=== PATIENT | female | born 1965 | race Caucasian/White ===

== ENCOUNTER 2019-05-02 09:49 | Outpatient (RCR) | payer BC, SELFPAY | END 2019-05-03 23:59 | disposition home or self-care (01) | LOC: SPT 09:49 | PROVIDERS: Family Provider Family Medicine; Referring Provider Neurological Surgery; Visit Provider Neurological Surgery | DX: M54.2 Cervicalgia (principal); M54.5 Low back pain | CPT/HCPCS: 97161 ==

== ENCOUNTER 2019-05-06 06:00 | Outpatient (RCR) | payer BC, SELFPAY | END 2019-06-01 23:59 | disposition home or self-care (01) | LOC: SPT 06:00 | PROVIDERS: Family Provider Family Medicine; Referring Provider Neurological Surgery; Visit Provider Neurological Surgery | DX: M54.2 Cervicalgia (principal); M54.5 Low back pain | CPT/HCPCS: 97110; 97140 ==

== ENCOUNTER 2019-06-02 06:00 | Outpatient (RCR) | payer BC, SELFPAY | END 2019-07-02 23:59 | disposition home or self-care (01) | LOC: SPT 06:00 | PROVIDERS: Family Provider Family Medicine; Referring Provider Neurological Surgery; Visit Provider Neurological Surgery | DX: M54.2 Cervicalgia (principal); M54.5 Low back pain | CPT/HCPCS: 97110 ==

== ENCOUNTER 2020-12-12 21:36 | Emergency (ER) | payer BC, SELFPAY ==
[2020-12-12 21:57] VITALS: BP 131/85; PULSE 96; RESP 16; TEMP 36.9; O2SAT 95; BMI 31.3
[2020-12-12 22:53] VITALS: BP 134/74; PULSE 86; RESP 18; O2SAT 97
--- NOTE | 2020-12-12 23:17 | ED_ITS ---
HPI - General Adult General: Chief complaint: General Medical Stated complaint: Low Back Pain/Painful urination Time Seen by Provider: 12/12/20 22:46 History of Present Illness: HPI narrative: Patient has been treating UTI at home for several days with homeopathic approach. Typically avoids use of antibiotics through use of essential oils and only homeopathic medication. Today pain became worse diffusely across lower back, urination became more painful bladder spasms more frequent. MD complaint: Dysuria, frequency. Onset (ago): day(s) Severity: moderate Severity scale (1-10): 5 Quality: burning and sharp Pain Consistency: constant Relieving factors: none Exacerbating factors: none Review of Systems General: Reports: 10 or more systems reviewed and unremarkable except in HPI and below : Reports: dysuria and urinary frequency Musc: Reports: back pain (bilateral lower back) Physical Exam Const: COMMON NORMALS: no acute distress, average body habitus, patient oriented x3, no limitations, healthy appearing, alert and well nourished HENMT: COMMON NORMALS: normocephalic, atraumatic and hearing grossly normal bilaterally HEAD & SCALP: normocephalic and atraumatic Eye: COMMON NORMALS: Equal, round and reactive pupils present, EOMs intact bilaterally and conjunctivae normal CONJUNCTIVA: Yes conjunctivae normal PUPIL: Yes Equal, round and reactive pupils present Neck/C-Spine: COMMON NORMALS: full ROM, no lymphadenopathy and no JVD Resp: COMMON NORMALS: normal respiratory effort, No retractions, No use of accessory muscles, clear to auscultation bilaterally and percussion normal AUSCULTATION: clear to auscultation bilaterally PERCUSSION: percussion normal Cardio: COMMON NORMALS: no JVD, regular rate, regular rhythm, S1 normal heart sound present, S2 normal heart sound present, No gallops present (Cardio), No clicks present (Cardio), No murmurs present (Cardio) and No rub (Cardio) RATE: regular rate RHYTHM: regular rhythm HEART SOUNDS: S1 normal heart sound present and S2 normal heart sound present GI: COMMON NORMALS: Normal to inspection, nondistended, normoactive bowel sounds present, Soft to palpation, non-tender, No hepatosplenomegaly present, no masses and no bruits PALPATION: Yes Soft to palpation and Yes No hepatosplenomegaly present : COMMON NORMALS: Yes no CVA tenderness BLADDER/KIDNEY EXAM: Yes no CVA tenderness Back/Pelvis: COMMON NORMALS: no CVA tenderness OTHER: Diffuse lower back pain, worse with urination. Neuro: COMMON NORMALS: patient oriented x3 SENSORIUM/ORIENTATION: Yes alert Skin: COMMON NORMALS: no rashes or lesions noted, no wounds, turgor normal, no jaundice, no petechiae and no mottling GENERAL SKIN EXAM: no rashes or lesions noted and turgor normal Course Vital Signs: Vital signs: Vital Signs Temperature 98.5 F 12/12/20 21:57 Pulse Rate 94 12/13/20 00:21 Respiratory Rate 18 12/13/20 00:21 Blood Pressure 99/72 12/13/20 00:21 Pulse Oximetry 97 12/13/20 00:21 [facility] - General Adult Lab Data: Attestation: I reviewed the patient's lab results. Labs: Lab Results 12/12/20 12/12/20 12/12/20 Range/Units 23:10 23:10 23:10 WBC 13.6 H (4.0-10.0) 10^3/ uL RBC 4.95 (4.1-5.3) 10^6/u L Hgb 13.2 (11.5-15.3) g/dL Hct 43.2 (37.0-47.0) % MCV 87.3 (81-99) fl MCH 26.7 L (28.0-34.0) pg MCHC 30.6 (30.0-36.0) g/dL RDW 15.7 H (12.1-15.1) % Plt Count 223 (130-400) 10^3/c mm MPV 12.6 H (7.4-10.4) fL Neut % (Auto) 64.7 % Lymph % (Auto) 27.3 % [place] % (Auto) 6.3 % Eos % (Auto) 1.0 % Baso % (Auto) 0.4 % Neut # (Auto) 8.81 H (1.8-7.7) 10^3/u L Lymph # (Auto) 3.7 (0.8-4.8) 10^3/u L [place] # (Auto) 0.9 (0.2-0.9) 10^3/u L Eos # (Auto) 0.1 (0.0-0.8) 10^3/u L Baso # (Auto) 0.1 (0.0-0.1) 10^3/u L Nucleated RBC % (a uto) 0 % Nucleated RBCs # 0.0 /100WBC Sodium 144 (136-145) mmol/L Potassium 3.8 (3.5-5.1) mmol/L Chloride 106 (98-107) mmol/L Carbon Dioxide 28 (22-29) mmol/L Anion Gap 13.8 (5-19) BUN 17 (6-20) mg/dL Creatinine 0.6 (0.5-0.9) mg/dL GFR Calculation 104.2 (90-130) mL/min Glucose 94 (65-115) mg/dL Calculated Osmolal ity 299 H (285-295) mOsm/k g Calcium 9.0 (8.5-10.5) mg/dL Total Bilirubin 0.2 (0.15-1.2) mg/dL AST 13 (0-32) U/L ALT 15 (0-33) U/L Alkaline Phosphata se 114 H (35-105) IU/L Total Protein 7.3 (6.6-8.7) g/dL Albumin 4.0 (3.5-5.2) g/dL Globulin 3.3 (1.3-4.6) g/dL Urine Color Yellow (Yellow) Urine Appearance Sl hazy (CLEAR) Urine pH 9 H (5-7) Ur Specific Gravit y 1.010 (1.005-1.030) Urine Protein Neg (Negative) Urine Glucose (UA) Norm (Normal) Urine Ketones Negative (Negative) Urine Blood 2+ H (Negative) Urine Nitrate Negative (Negative) Urine Bilirubin Neg (Negative) Prot Sulfosalicyli c Acd Negative (Negative) Urine Urobilinogen Norm (Negative) mg/dL Ur Leukocyte [place]ola ase 1+ H (Negative) Urine RBC 25-40 H (0-2) /hpf Urine WBC 40-55 H (0-5) /hpf Ur Squamous Epith Cells 5-10 H (0-5) /hpf Amorphous Sediment Not Reportable Urine Bacteria 2+ H (NONE) /hpf Discharge Plan Discharge Patient Disposition: Home Clinical Impression: Acute cystitis Condition: Stable Prescriptions: New Celebrex 200 mg capsule 200 mg PO BID PRN (Reason: pain) Qty: 14 RF: 0 levofloxacin 750 mg tablet 750 mg PO DAILY 7 Days RF: 0 Discharge Orders: Discharge ED (Routine); Ordered 12/13/20 Ordered By: Marta Sanchez Referrals: Juju Treviño MD [Primary Care Provider] - 4-7 days Discharge Diet: Usual diet Discharge Activity: Resume usual activity Patient Instructions: Urinary Tract Infection in Women (ED) Activity Restrictions/Additional Instructions: Return for urgent evaluation should condition deteriorate, pain become worse, or development of fevers, nausea/vomiting/diarrhea. Coding Level of Care Code ED Tree Scout for Chg Fwd Exam Comprehensive
[2020-12-12 23:42] LABS: Basophils # 0.1 10^3/uL (0.0-0.1); Basophils % 0.4 %; Eosinophils # 0.1 10^3/uL (0.0-0.8); Hematocrit 43.2 % (37.0-47.0); Hemoglobin 13.2 g/dL (11.5-15.3); Lymphocytes # 3.7 10^3/uL (0.8-4.8); Lymphocytes % 27.3 %; Mean Corpuscular HGB Conc 30.6 g/dL (30.0-36.0); Mean Corpuscular Hemoglobin 26.7 pg (28.0-34.0); Mean Corpuscular Volume 87.3 fl (81-99); Mean Platelet Volume 12.6 fL (7.4-10.4); Monocytes # 0.9 10^3/uL (0.2-0.9); Monocytes % 6.3 %; Neutrophils # 8.81 10^3/uL (1.8-7.7); Neutrophils % 64.7 %; Nucleated Red Blood Cells % 0 %; Platelet Count 223 10^3/cmm (130-400); Red Blood Count 4.95 10^6/uL (4.1-5.3); Red Cell Distribution Width 15.7 % (12.1-15.1); White Blood Count 13.6 10^3/uL (4.0-10.0)
[2020-12-12 23:52] LABS: Alanine Aminotransferase 15 U/L (0-33); Alkaline Phosphatase 114 IU/L (35-105); Anion Gap 13.8 (5-19); Aspartate Amino Transferase 13 U/L (0-32); Blood Urea Nitrogen 17 mg/dL (6-20); Carbon Dioxide 28 mmol/L (22-29); Chloride 106 mmol/L (98-107); Globulin 3.3 g/dL (1.3-4.6); Glomerular Filtration Rate 104.2 mL/min (90-130); Glucose 94 mg/dL (65-115); Osmolality Calculated 299 mOsm/kg (285-295); Potassium 3.8 mmol/L (3.5-5.1); Sodium 144 mmol/L (136-145); Total Bilirubin 0.2 mg/dL (0.15-1.2); Total Protein 7.3 g/dL (6.6-8.7)
[2020-12-13 00:10] LABS: Add Urine Microscopic? YES; Bilirubin Urine Neg (Negative); Blood Urine 2+ (Negative); Glucose Urine UA Norm (Normal); Ketones Urine Negative (Negative); Leukocyte Esterase Urine 1+ (Negative); Nitrate Urine Negative (Negative); Protein Urine Neg (Negative); Sulfosalicylic Acid Urine Negative (Negative); Urine Appearance SL Hazy (CLEAR); Urine Color Yellow (Yellow); Urobilinogen Urine Norm (Negative); pH Urine 9 (5-7)
[2020-12-13 00:12] LABS: Add Urine Culture? Yes; Bacteria Urine 2+ /hpf; RBC Urine 25-40 /hpf (0-2); WBC Urine 40-55 /hpf (0-5)
[2020-12-13 00:21] VITALS: BP 99/72; PULSE 94; RESP 18; O2SAT 97
[2020-12-13] MEDS: levoFLOXacin 750 mg Tablet PO (00:22)
[2020-12-13] MEDS: ketorolac 30 mg/mL INJ IVP (00:54)
== END 2020-12-13 00:55 | disposition home or self-care (01) ==
PROVIDERS: Emergency Provider Nurse Practitioner Family; PCP Family Medicine
DX: N30.00 Acute cystitis without hematuria (principal)
CPT/HCPCS: 80053; 81001; 81003; 85025; 87077; 87086; 87186; 96374; 99284; J1885

== ENCOUNTER 2021-02-17 11:45 | Outpatient (CLI) | payer BC, SELFPAY ==
[2021-02-17 11:57] VITALS: BP 117/77; PULSE 95; RESP 18; TEMP 37.1; BMI 32.4
--- NOTE | 2021-02-17 12:05 | PC.NURSE ---
All assessments by SHANNAN Monet, charted by Kelly RN
--- NOTE | 2021-02-17 12:08 | PC.NURSE ---
By Rebecca Pimentel RN
--- NOTE | 2021-02-17 12:15 | PC.NURSE ---
AG did assessments and TJ charted them.
[2021-02-17 12:29] VITALS: BP 115/76; PULSE 93; RESP 16; TEMP 37.1; O2SAT 94
[2021-02-17 13:25] VITALS: BP 109/71; PULSE 89; RESP 16; TEMP 37.1; O2SAT 96
[2021-02-17 13:30] VITALS: BP 109/71; PULSE 89; RESP 16; TEMP 37.1; O2SAT 96
--- NOTE | 2021-02-17 13:36 | PC.NURSE ---
Assessments performed by VR/documented by CRYSTAL
== END 2021-02-17 11:46 | disposition home or self-care (01) ==
LOC: OPS 11:47
PROVIDERS: PCP Family Medicine; Visit Provider Family Medicine
DX: U07.1 COVID-19 (principal)
CPT/HCPCS: 96365

== ENCOUNTER 2021-02-18 11:08 | Emergency (ER) | payer BC, SELFPAY ==
[2021-02-18 11:35] VITALS: BP 112/78; PULSE 102; RESP 21; TEMP 37.5; O2SAT 97; BMI 32.4
--- NOTE | 2021-02-18 11:39 | XR_ITS ---
WS: [id number] Exam: XR chest 1V portable [id number] Date/Time of Exam: 02/18/2021 11:41 AM Reason For Exam: covid Comparison 07/20/2013. Mild interstitial infiltrate in the right lower lung zone. Remaining lung potts are clear. There is plaque atelectasis in the left lower lobe. Normal cardiomediastinal silhouette and bony elements. XR/XR chest 1V portable [id number] IMPRESSION: 1. Mild diffuse infiltrate and plaque atelectasis in the right lower lung zone. Developing pneumonia is not excluded. Plaque atelectasis in the left lower lob e.
--- NOTE | 2021-02-18 11:43 | W.ED.COVID ---
HPI - COVID General: Chief Complaint: COVID symptoms Stated Complaint: COVID +: INFUSION, SOB Time Seen by Provider: 02/18/21 11:38 Triage information: Has fever, cough or shortness of breath. History of Present Illness: HPI Narrative: Patient is a 55-year-old female diagnosed with Covid last Monday. She was prescribed 5 days of steroids and a albuterol inhaler. She received Regeneron infusion yesterday. Today she is had near syncope felt very weak nausea short of breath. Did have a mild tachycardia coming in. Been taking Tylenol. Has had difficulty keeping food and fluids down. No fever at home no chest pain no abdominal pain no altered mental status no rashes. She does state that her tips of her fingers and toes have been numb. Endorses shortness of breath cough generalized weakness headache and nausea COVID Results: No Data to Display Review of Systems General: Reports: 10 or more systems reviewed and unremarkable except in HPI and below Physical Exam Const: COMMON NORMALS: no acute distress, average body habitus, patient oriented x3, no limitations, alert and well nourished EXAM LIMITATIONS: no altered mental status and no behavioral limitations GENERAL APPEARANCE: ill appearing; not comfortable and not in distress ORIENTATION/CONSCIOUSNESS: Yes awake, Yes oriented to person, Yes oriented to place and Yes oriented to time HENMT: COMMON NORMALS: normocephalic, atraumatic, external ears normal and Normal external nose present HEAD & SCALP: normocephalic and atraumatic NOSE: Normal external nose present EXTERNAL EAR: Yes external ears normal Eye: COMMON NORMALS: Equal, round and reactive pupils present, EOMs intact bilaterally and conjunctivae normal CONJUNCTIVA: Yes conjunctivae normal PUPIL: Yes Equal, round and reactive pupils present Chest: COMMONS NORMALS: normal inspection of the chest Resp: COMMON NORMALS: normal respiratory effort, No retractions, No use of accessory muscles and clear to auscultation bilaterally EFFORT & INSPECTION: Yes able to speak in complete sentences, Yes symmetric chest movement, No tachypneic, No respiratory distress, No decreased respiratory effort, No labored, No stridor, No Actively coughing and No uses accessory muscles AUSCULTATION: clear to auscultation bilaterally Cardio: COMMON NORMALS: regular rate and regular rhythm RATE: regular rate RHYTHM: regular rhythm GI: COMMON NORMALS: Normal to inspection, nondistended, normoactive bowel sounds present, Soft to palpation and non-tender PALPATION: Yes Soft to palpation Extremity: COMMON NORMALS: normal to inspection, full ROM, capillary refill normal and no clubbing, cyanosis or edema Neuro: JC COMA SCALE: document GCS findings [place] coma scale eye opening: Spontaneous [place] coma scale verbal response: Orientated [place] coma scale motor response: Obey commands Jc coma scale total score: 15 COMMON NORMALS: patient oriented x3, CN's II-XII intact bilaterally, moves all extremities and no focal motor deficits SENSORIUM/ORIENTATION: Yes alert, Yes oriented to person, Yes oriented to place and Yes oriented to time Psych: COMMON NORMALS: mental status grossly normal Skin: COMMON NORMALS: no rashes or lesions noted, no wounds, turgor normal, no jaundice, no petechiae and no mottling GENERAL SKIN EXAM: no rashes or lesions noted and turgor normal Course ED course: X-ray shows some mild plaque atelectasis and possible infiltrates this would be consistent with her Covid. No organized infiltrate or pneumonia. Patient still oxygenating well on room air will await labs Patient started to desaturate into the 80s. Placed her on 2 L of oxygen which is has her up to 94%. Will get remainder of Covid admission labs in case we need to admit her. We will also get a D-dimer because she was mildly tachycardic when she came in and see if we need to do a CTA on her Patient's D-dimer was within normal normal limits. Was seen by respiratory therapy who recommended home with 2 L of oxygen. Doing well able to eat and drink we will send her home with some Deysi recent discharge instructions. This point she does seem to have a mild to moderate case of Covid in no respiratory distress home with home oxygen and symptom control have her follow-up with her primary care provider and return with any worsening symptoms. Vital Signs: Vital signs: Vital Signs Temperature 99.5 F 02/18/21 11:35 Pulse Rate 102 H 02/18/21 11:35 Respiratory Rate 21 H 02/18/21 11:35 Blood Pressure 112/78 02/18/21 11:35 Pulse Oximetry 94 02/18/21 15:37 MDM - COVID MDM Narrative: Medical decision making narrative: Patient is a 55-year-old female 5 days after Covid diagnosis with fatigue nausea distal digital tingling and shortness of breath Differential diagnosis includes electrolyte derangement, Covid, pneumonia Patient is in no acute distress oxygenating appropriately on room air. Awake alert and oriented. She does obviously look like she feels ill. Unfortunately as I explained to her there is really not much in the way of outpatient management for Covid. Will give her some Zofran here today to make sure that she can keep some food or fluids down send her home with with some as well as instructions to use Tylenol ibuprofen follow-up with her primary care provider. Will get basic labs and chest x-ray to make sure there is no other underlying serious illness Medical Records: Attestation: I reviewed the patient's medical records. Lab Data: Labs: Lab Results 02/18/21 02/18/21 02/18/21 12:25 12:25 12:25 WBC 7.0 10^3/uL 10^3/ uL (4.0-10.0) RBC 5.32 10^6/uL H 10 ^6/uL (4.1-5.3) Hgb 14.5 g/dL g/dL (11.5-15.3) Hct 44.5 % % (37.0-47.0) MCV 83.6 fl fl (81-99) MCH 27.3 pg L pg (28.0-34.0) MCHC 32.6 g/dL g/dL (30.0-36.0) RDW 15.3 % H % (12.1-15.1) Plt Count 179 10^3/cmm 10^3 /cmm (130-400) MPV 12.4 fL H fL (7.4-10.4) Neut % (Auto) 65.4 % % Lymph % (Auto) 27.8 % % [place] % (Auto) 6.0 % % Eos % (Auto) 0.0 % % Baso % (Auto) 0.1 % % Neut # (Auto) 4.54 10^3/uL 10^3 /uL (1.8-7.7) Lymph # (Auto) 1.9 10^3/uL 10^3/ uL (0.8-4.8) [place] # (Auto) 0.4 10^3/uL 10^3/ uL (0.2-0.9) Eos # (Auto) 0.0 10^3/uL 10^3/ uL (0.0-0.8) Baso # (Auto) 0.0 10^3/uL 10^3/ uL (0.0-0.1) Nucleated RBC % (a uto) 0 % % Nucleated RBCs # 0.0 /100WBC /100W BC D-Dimer 0.57 ug/mIFEU ug/ mIFEU (0-0.59) Sodium 136 mmol/L mmol/L (136-145) Potassium 4.4 mmol/L mmol/L (3.5-5.1) Chloride 99 mmol/L mmol/L (98-107) Carbon Dioxide 24 mmol/L mmol/L (22-29) Anion Gap 17.4 (5-19) BUN 14 mg/dL mg/dL (6-20) Creatinine 0.8 mg/dL mg/dL (0.5-0.9) GFR Calculation 74.7 mL/min L mL/ min (90-130) Glucose 107 mg/dL mg/dL (65-115) Calculated Osmolal ity 283 mOsm/kg L mOs m/kg (285-295) Lactic Acid Calcium 8.5 mg/dL mg/dL (8.5-10.5) Magnesium 2.3 mg/dL mg/dL (1.7-2.3) Ferritin 524 ng/mL H ng/mL (15-150) Total Bilirubin 0.3 mg/dL mg/dL (0.15-1.2) AST 21 U/L U/L (0-32) ALT 19 U/L U/L (0-33) Alkaline Phosphata se 83 IU/L IU/L (35-105) Lactate Dehydrogen ase 189 U/L U/L (135-214) Troponin T Gen 5 n g/L C-Reactive Protein 21.0 mg/L H mg/L (0.0-4.9) Total Protein 6.8 g/dL g/dL (6.6-8.7) Albumin 4.0 g/dL g/dL (3.5-5.2) Globulin 2.8 g/dL g/dL (1.3-4.6) 02/18/21 02/18/21 12:25 12:25 WBC RBC Hgb Hct MCV MCH MCHC RDW Plt Count MPV Neut % (Auto) Lymph % (Auto) [place] % (Auto) Eos % (Auto) Baso % (Auto) Neut # (Auto) Lymph # (Auto) [place] # (Auto) Eos # (Auto) Baso # (Auto) Nucleated RBC % (a uto) Nucleated RBCs # D-Dimer Sodium Potassium Chloride Carbon Dioxide Anion Gap BUN Creatinine GFR Calculation Glucose Calculated Osmolal ity Lactic Acid 1.4 mmol/L mmol/L (0.5-2.2) Calcium Magnesium Ferritin Total Bilirubin AST ALT Alkaline Phosphata se Lactate Dehydrogen ase Troponin T Gen 5 n g/L 8 ng/L ng/L (0-10) C-Reactive Protein Total Protein Albumin Globulin COVID Results: No Data to Display Discharge Plan Discharge Patient Disposition: Home Clinical Impression: Suspected severe acute respiratory syndrome coronavirus 2 (SARS-CoV-2) infection Condition: Stable Prescriptions: New Zofran 4 mg tablet 4 mg PO Q8H 5 Days Qty: 15 RF: 0 No Action albuterol sulfate 90 mcg/actuation HFA aerosol inhaler 2 puff INHALATION Q4H PRN (Reason: Shortness Of Breath) RF: 0 Discharge Orders: Discharge ED (Routine); Ordered 02/18/21 Ordered By: Mitch Mtz Other Ambulatory Orders: DME: Oxygen (Order) Location: None Selected Ordered By: Mitch Mtz Referrals: Juju Treviño MD [Primary Care Provider] - Patient Instructions: COVID-19 (Coronavirus Disease 2019) (ED), Safely Care for Someone Who Has COVID-19 (ED) Activity Restrictions/Additional Instructions: Follow-up with your primary care provider in 3 to 5 days. Return the emergency department with new or worsening symptoms, if you have to turn your oxygen up past 5L/min you are able to keep any fluid food or fluids down altered mental status or any other concerning symptoms Coding Level of Care Code ED Poultry Process Worker for Rasheed Fwstefanie Exam Comprehensive
[2021-02-18 12:48] LABS: Basophils % 0.1 %; Hematocrit 44.5 % (37.0-47.0); Hemoglobin 14.5 g/dL (11.5-15.3); Lymphocytes # 1.9 10^3/uL (0.8-4.8); Lymphocytes % 27.8 %; Mean Corpuscular HGB Conc 32.6 g/dL (30.0-36.0); Mean Corpuscular Hemoglobin 27.3 pg (28.0-34.0); Mean Corpuscular Volume 83.6 fl (81-99); Mean Platelet Volume 12.4 fL (7.4-10.4); Monocytes # 0.4 10^3/uL (0.2-0.9); Neutrophils # 4.54 10^3/uL (1.8-7.7); Neutrophils % 65.4 %; Nucleated Red Blood Cells % 0 %; Platelet Count 179 10^3/cmm (130-400); Red Blood Count 5.32 10^6/uL (4.1-5.3); Red Cell Distribution Width 15.3 % (12.1-15.1)
[2021-02-18] MEDS: ondansetron 4 MG Tablet PO (13:11)
[2021-02-18] MEDS: sodium chloride 0.9% 1,000 ML 999 ML IV (13:12)
--- NOTE | 2021-02-18 13:15 | PC.NURSE ---
Pts SATs at 86% on RA, NC applied at 2L, Dr. Mtz advised.
[2021-02-18 13:50] LABS: Troponin T (5th) Once 8 ng/L (0-10)
[2021-02-18 13:51] LABS: Lactic Sepsis W/Reflex 1.4 mmol/L (0.5-2.2)
[2021-02-18 13:52] LABS: Alanine Aminotransferase 19 U/L (0-33); Alkaline Phosphatase 83 IU/L (35-105); Aspartate Amino Transferase 21 U/L (0-32); Blood Urea Nitrogen 14 mg/dL (6-20); Calcium 8.5 mg/dL (8.5-10.5); Carbon Dioxide 24 mmol/L (22-29); Chloride 99 mmol/L (98-107); Ferritin 524 ng/mL (15-150); Globulin 2.8 g/dL (1.3-4.6); Glomerular Filtration Rate 74.7 mL/min (90-130); Glucose 107 mg/dL (65-115); Magnesium 2.3 mg/dL (1.7-2.3); Osmolality Calculated 283 mOsm/kg (285-295); Sodium 136 mmol/L (136-145); Total Bilirubin 0.3 mg/dL (0.15-1.2); Total Protein 6.8 g/dL (6.6-8.7)
[2021-02-18 14:05] LABS: Anion Gap 17.4 (5-19); Potassium 4.4 mmol/L (3.5-5.1)
[2021-02-18] MEDS: dexamethasone 4 mg/mL INJ 10 MG IVP (14:07)
[2021-02-18 14:10] LABS: D Dimer 0.57 ug/mIFEU (0-0.59)
[2021-02-18 14:36] LABS: Lactate Dehydrogenase 189 U/L (135-214)
[2021-02-18 15:37] VITALS: O2SAT 94
[2021-02-18 16:18] VITALS: PULSE 87; RESP 22; O2SAT 92
== END 2021-02-18 17:53 | disposition home or self-care (01) ==
PROVIDERS: Emergency Provider Family Medicine; PCP Family Medicine
DX: U07.1 COVID-19 (principal)
CPT/HCPCS: 71045; 80053; 82728; 83605; 83615; 83735; 84484; 85025; 85378; 86140; 96361; 96374; 99283; 99291; J1100; J7030; Q0162

== ENCOUNTER 2022-09-20 14:46 | Outpatient (CLI) | payer BC, SELFPAY ==
--- NOTE | 2022-09-20 14:55 | MM_ITS ---
WS: [id number] BILATERAL 3D TOMOSYNTHESIS DIGITAL SCREENING MAMMOGRAPHY WITH CAD CLINICAL INFORMATION: SCREENING HISTORY: Screening mammogram. Bilateral breast pain and soreness. COMPARISON: 2018 TECHNIQUE: Bilateral CC and MLO views. FINDINGS: Scattered fibroglandular densities bilaterally. No suspicious focal mass, asymmetry, calcifications, or architectural distortion. No evidence of malignancy. MM/[place] [id number] IMPRESSION: BI-RADS: 1-Negative FOLLOW UP: 1 Year Follow-up Recommend return to annual screening mammography.
== END 2022-09-20 14:47 | disposition home or self-care (01) ==
PROVIDERS: PCP Family Medicine; Visit Provider Family Medicine
DX: Z12.31 Encounter for screening mammogram for malignant neoplasm of breast (principal)
CPT/HCPCS: 77063; 77067

== ENCOUNTER 2023-01-07 19:49 | Emergency (ER) | payer BC, SELFPAY ==
--- NOTE | 2023-01-07 19:52 | CTR_ITS ---
PROCEDURE INFORMATION: Exam: CT Head Without Contrast Exam date and time: 01/07/2023 8:12 PM Age: 57 years old Clinical indication: Pain; Weakness, extremity and weakness, facial; Headache; Patient HX: TAMAYO with left facial and left upper ext tingling. History of bells palsy. ; Additional info: Stroke TECHNIQUE: Imaging protocol: Computed tomography of the head without contrast. Radiation optimization: All CT scans at this facility use at least one of these dose optimization techniques: automated exposure control; mA and/or kV adjustment per patient size (includes targeted exams where dose is matched to clinical indication); or iterative reconstruction. REPORTING DATA: Count of CT and Cardiac NM exams in prior 12 months: This patient has received 0 known CTs and 0 known cardiac nuclear medicine studies in the 12 months prior to the current study. COMPARISON: No relevant prior studies available. RADIATION DOSE METRICS: Total DLP (mGy-cm): 1057.78 FINDINGS: Brain: No hemorrhage. Unremarkable white matter. No mass effect. Preserved solitario-white interfaces. Cerebral ventricles: No ventriculomegaly. Paranasal sinuses: Visualized sinuses are unremarkable. No fluid levels. Mastoid air cells: Visualized mastoid air cells are well aerated. Bones/joints: Unremarkable. No acute fracture. Soft tissues: Unremarkable. CT/CT head wo con* [id number] IMPRESSION: No evidence of acute intracranial hemorrhage, mass effect, or edema.
[2023-01-07 19:55] VITALS: BP 163/91; PULSE 78; RESP 16; TEMP 36.8; O2SAT 96; BMI 33.6
--- NOTE | 2023-01-07 20:06 | ECG_ITS ---
[facility] Test Date: 2023-01-07 Pat Name: Darling Reyes Department: Room: Gender: Female Sheet Heater: : 1965 Requested By: Alber Escudero Order Number: [id number] Deja MD: Gilberto Zafar M.D. Measurements Intervals [place] Rate: 76 P: 76 NM: 152 QRS: 61 QRSD: 89 T: 89 QT: 373 QTc: 420 Interpretive Statements SINUS RHYTHM MODERATE T-WAVE ABNORMALITY, CONSIDER ANTERIOR ISCHEMIA [-0.1+ mV T-WAVE IN V3/V4] No previous ECG available for comparison Electronically Signed On 01-08-2023 22:53:28 CDT by Gilberto Zafar M.D. [email or web address]
[2023-01-07 20:07] VITALS: BP 163/91; PULSE 82; RESP 16; O2SAT 96
[2023-01-07 20:43] LABS: Basophils # 0.1 10^3/uL (0.0-0.1); Basophils % 0.5 %; Eosinophils # 0.6 10^3/uL (0.0-0.8); Eosinophils % 3.7 %; Hematocrit 44.2 % (36-47); Lymphocytes % 30.3 %; Mean Corpuscular HGB Conc 29.9 g/dL (30-55); Mean Corpuscular Hemoglobin 26.5 pg (27-33); Mean Corpuscular Volume 88.6 fl (85-98); Mean Platelet Volume 12.3 fL (7.4-10.4); Monocytes # 0.8 10^3/uL (0.2-0.9); Monocytes % 4.8 %; Neutrophils # 9.95 10^3/uL (1.8-7.7); Neutrophils % 60.3 %; Nucleated Red Blood Cells % 0 %; Platelet Count 260 10^3/cmm (157-399); Red Blood Count 4.99 10^6/uL (3.85-5.65); Red Cell Distribution Width 15.4 % (12.1-15.1)
--- NOTE | 2023-01-07 20:50 | ED_ITS ---
HPI - Neuro Symptoms/Deficit General: Chief Complaint: Neuro Symptoms/Deficit Stated Complaint: left face tinkling, left arm weak Time Seen by Provider: 01/07/23 20:03 History of Present Illness: 57-year-old female with a history of headaches. For the last few days, she has had on and off feelings of left arm heaviness and weakness, pain and tingling to the left arm as well. She is also had a headache on and off. 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 But the numbness is new she complains of mild left-sided leg weakness as well, but she can walk. Her headache is an 8 out of 10. She denies fever, other recent illness. Onset (ago): day(s) Associated symptoms: Reports headache(s) and nausea; Deny chest pain, vertigo or vomiting Review of Systems Const: Denies: fever(s) Eyes: Denies: change in vision ENMT: Reports: nasal congestion Card: Denies: chest pain Resp: Denies: dyspnea, productive cough or non-productive cough GI: Reports: nausea; Denies: abdominal pain or vomiting Neuro: Reports: headache(s), numbness in extremities, weakness in extremities and sensory changes; Denies: lack of coordination, difficulty walking, dizziness, vertigo, confusion or Slurred speech present NIH stroke score NIHSS: Level Of Consciousness - 1a: 0 Level Of Consciousness Questions - 1b: Both Correct Level Of Consciousness Commands - 1c: Both Correct Best Gaze - 2: Normal Visual [place] - 3: No Visual Loss Facial Palsy - 4: Minor Paralysis Motor Arm Right - 5: No Drift Motor Arm Left - 5: No Drift Motor Leg Right - 6: No Drift Motor Leg Left - 6: No Drift Limb Ataxia - 7: Absent Sensory - 8: Mild To Moderate Loss Best Language - 9: No Aphasia Dysarthia - 10: Normal Extinction And Inattention - 11: 0 Score: Total Score: 2 Physical Exam Const: COMMON NORMALS: no acute distress GENERAL APPEARANCE: cooperative; not ill appearing and not frail appearing HENMT: COMMON NORMALS: normocephalic, atraumatic and Normal external nose present HEAD & SCALP: normocephalic and atraumatic FACE & SINUS: normal facial exam and face symmetric NOSE: Normal external nose present Eye: COMMON NORMALS: Equal, round and reactive pupils present and EOMs intact bilaterally PUPIL: Yes Equal, round and reactive pupils present Neck/C-Spine: GENERAL: Yes trachea midline Chest: CHEST: Yes Symmetrical chest wall rise Resp: COMMON NORMALS: normal respiratory effort, No retractions, No use of accessory muscles and clear to auscultation bilaterally AUSCULTATION: clear to auscultation bilaterally Cardio: COMMON NORMALS: regular rate and regular rhythm RATE: regular rate RHYTHM: regular rhythm GI: COMMON NORMALS: Normal to inspection, nondistended, normoactive bowel sounds present Extremity: COMMON NORMALS: no pedal edema Neuro: JC COMA SCALE: document GCS findings Jc coma scale eye opening: Spontaneous Jc coma scale verbal response: Orientated [place] coma scale motor response: Obey commands [place] coma scale total score: 15 SENSORY EXAM: Yes extremities (intact) Psych: COMMON NORMALS: speech normal SPEECH: Yes normal speech Skin: COMMON NORMALS: no rashes or lesions noted GENERAL SKIN EXAM: no rashes or lesions noted Course Vital Signs: Vital signs: Vital Signs Temperature 98.2 F 01/07/23 19:55 Pulse Rate 63 01/08/23 00:28 Respiratory Rate 16 01/08/23 00:28 Blood Pressure 149/62 01/08/23 00:28 Pulse Oximetry 99 01/08/23 00:28 Oxygen Delivery Me thod Nasal Cannula 01/07/23 22:07 Oxygen Flow Rate 3 01/07/23 22:07 MDM - Neuro Symptoms/Deficit Medical Decision Making Total NIH stroke score is 2. This makes her not a tPA candidate. She is also out of the treatment window, as she has had some of the symptoms for days. CT of her head is negative. White blood cell count is elevated without left shift. BMP is not remarkable. She has a nitrate positive urinary tract infection but minimal white blood cells and only trace leukocyte Estrace. Patient was given a migraine cocktail, including IV Depacon. Interestingly, her arm is less weak, her face is less droop, she does not have the sensory changes she had. Symptoms still not resolved, but much improved. She wishes to go home. She will be allowed home. Close outpatient follow-up. She will watch her blood pressure closely. Lab Data 01/07/23 20:35 01/07/23 20:[address] 01/07/23 19:52 IMPRESSION: No evidence of acute intracranial hemorrhage, mass effect, or edema. Laboratory Results WBC 16.50 10^3/uL (3.29-11.43) H 01/07/23 20:35 RBC 4.99 10^6/uL (3.85-5.65) 01/07/23 20:35 Hgb 13.20 g/dL (11.27-16.99) 01/07/23 20:35 Hct 44.2 % (36-47) 01/07/23 20:35 MCV 88.6 fl (85-98) 01/07/23 20:35 MCH 26.5 pg (27-33) L 01/07/23 20:35 MCHC 29.9 g/dL (30-55) L 01/07/23 20:35 RDW 15.4 % (12.1-15.1) H 01/07/23 20:35 Plt Count 260 10^3/cmm (157-399) 01/07/23 20:35 MPV 12.3 fL (7.4-10.4) H 01/07/23 20:35 Neut % (Auto) 60.3 % 01/07/23 20:35 Lymph % (Auto) 30.3 % 01/07/23 20:35 [place] % (Auto) 4.8 % 01/07/23 20:35 Eos % (Auto) 3.7 % 01/07/23 20:35 Baso % (Auto) 0.5 % 01/07/23 20:35 Neut # (Auto) 9.95 10^3/uL (1.8-7.7) H 01/07/23 20:35 Lymph # (Auto) 5.0 10^3/uL (0.8-4.8) H 01/07/23 20:35 [place] # (Auto) 0.8 10^3/uL (0.2-0.9) 01/07/23 20:35 Eos # (Auto) 0.6 10^3/uL (0.0-0.8) 01/07/23 20:35 Baso # (Auto) 0.1 10^3/uL (0.0-0.1) 01/07/23 20:35 Nucleated RBC % (auto) 0 % 01/07/23 20:35 Nucleated RBCs # 0.0 /100WBC 01/07/23 20:35 PT 13.10 SECONDS (12.1-14.9) 01/07/23 20:35 INR 0.96 (0.8-1.2) 01/07/23 20:35 APTT 25.8 SECONDS (23.9-36.7) 01/07/23 20:35 Sodium 135 mmol/L (136-145) L 01/07/23 20:35 Potassium 4.1 mmol/L (3.5-5.1) 01/07/23 20:35 Chloride 104 mmol/L (98-107) 01/07/23 20:35 Carbon Dioxide 21 mmol/L (22-29) L 01/07/23 20:35 Anion Gap 14.1 (5-19) 01/07/23 20:35 BUN 16 mg/dL (6-20) 01/07/23 20:35 Creatinine 0.7 mg/dL (0.5-0.9) 01/07/23 20:35 GFR Calculation 86.6 mL/min (90-130) L 01/07/23 20:35 Glucose 91 mg/dL (65-115) 01/07/23 20:35 Calculated Osmolality 281 mOsm/kg (285-295) L 01/07/23 20:35 Calcium 9.3 mg/dL (8.5-10.5) 01/07/23 20:35 Total Bilirubin 0.3 mg/dL (0.15-1.2) 01/07/23 20:35 AST 16 U/L (0-32) 01/07/23 20:35 ALT 13 U/L (0-33) 01/07/23 20:35 Alkaline Phosphatase 102 U/L (35-105) 01/07/23 20:35 Troponin T Baseline < 6 ng/L (0-10) 01/07/23 20:35 Troponin T 120 Minute 10.02 ng/L (0-10) H 01/07/23 22:17 Delta Troponin T 4.43896 ABS# (0-10) 01/07/23 22:17 Total Protein 7.2 g/dL (6.6-8.7) 01/07/23 20:35 Albumin 3.8 g/dL (3.5-5.2) 01/07/23 20:35 Globulin 3.4 g/dL (1.3-4.6) 01/07/23 20:35 Urine Color Yellow (Yellow) 01/07/23 23:01 Urine Appearance Cloudy (CLEAR) A 01/07/23 23:01 Urine pH 6 (5-7) 01/07/23 23:01 Ur Specific [place] 1.020 (1.005-1.030) 01/07/23 23:01 Urine Protein Neg (Negative) 01/07/23 23:01 Urine Glucose (UA) Norm (Normal) 01/07/23 23:01 Urine Ketones 1+ (Negative) H 01/07/23 23:01 Urine Blood Neg (Negative) 01/07/23 23: Urine Nitrate Positive (Negative) H 01/07/23 23:01 Urine Bilirubin Neg (Negative) 01/07/23 23:01 Urine Urobilinogen Neg mg/dL (Negative) 01/07/23 23:01 Ur Leukocyte Esterase Trace (Negative) H 01/07/23 23:01 Urine RBC None /hpf (0-2) 01/07/23 23:01 Urine WBC 5-10 /hpf (0-5) H 01/07/23 23:01 Ur Squamous Epith Cells 0-4 /hpf (0-5) H 01/07/23 23: Amorphous Sediment Not Reportable 01/07/23 23: Urine Bacteria 4+ /hpf (NONE) H 01/07/23 23:01 All radiology interpretation(s) finalized by discharge Discharge Plan Discharge Patient Disposition: Home Clinical Impression: Complicated migraine, Hypertension Condition: Stable Prescriptions: No Action albuterol sulfate 90 mcg/actuation HFA aerosol inhaler 2 puff INHALATION Q4H PRN (Reason: Shortness Of Breath) Discharge Orders: Discharge ED (Routine); Ordered 01/07/23 Ordered By: Giancarlo Burgos Referrals: Juju Treviño MD [Primary Care Provider] - 1-3 days Patient Instructions: Migraine Headache (ED) Activity Restrictions/Additional Instructions: Return for any worsening symptoms. Check your blood pressure twice daily, repor t numbers to your physician. See your doctor this week. Coding Level of Care Code ED [facility] for Rasheed [facility]ton
[2023-01-07 20:57] LABS: INR 0.96 (0.8-1.2)
[2023-01-07 20:58] LABS: Partial Thromboplastin Time 25.8 SECONDS (23.9-36.7)
[2023-01-07 20:59] VITALS: BP 167/88; PULSE 86; RESP 18; O2SAT 96
[2023-01-07 20:59] LABS: Alanine Aminotransferase 13 U/L (0-33); Albumin Level 3.8 g/dL (3.5-5.2); Alkaline Phosphatase 102 U/L (35-105); Blood Urea Nitrogen 16 mg/dL (6-20); Calcium 9.3 mg/dL (8.5-10.5); Carbon Dioxide 21 mmol/L (22-29); Chloride 104 mmol/L (98-107); Globulin 3.4 g/dL (1.3-4.6); Glomerular Filtration Rate 86.6 mL/min (90-130); Glucose 91 mg/dL (65-115); Osmolality Calculated 281 mOsm/kg (285-295); Sodium 135 mmol/L (136-145); Total Bilirubin 0.3 mg/dL (0.15-1.2); Total Protein 7.2 g/dL (6.6-8.7)
[2023-01-07 21:01] LABS: Anion Gap 14.1 (5-19); Aspartate Amino Transferase 16 U/L (0-32); Potassium 4.1 mmol/L (3.5-5.1)
[2023-01-07 21:11] LABS: Troponin(5th) Baseline < 6 ng/L (0-10)
[2023-01-07] MEDS: metoclopramide 5 mg/mL SDV 2 mL 10 MG IVP (21:33)
[2023-01-07] MEDS: fentaNYL 50 mcg/mL INJ 2mL IVP (21:38)
[2023-01-07] MEDS: valproic acid inj 500 MG in sodium chloride 0.9% 50 ML 55 MG IV (21:41)
[2023-01-07 22:07] VITALS: BP 119/67; PULSE 69; RESP 16; O2SAT 99
[2023-01-07 22:47] LABS: Troponin 5 2HR 10.02 ng/L (0-10)
[2023-01-07 23:19] LABS: Add Urine Microscopic? YES; Bilirubin Urine Neg (Negative); Blood Urine Neg (Negative); Glucose Urine UA Norm (Normal); Ketones Urine 1+ (Negative); Leukocyte Esterase Urine Trace (Negative); Nitrate Urine Positive (Negative); Protein Urine Neg (Negative); Urine Appearance Cloudy (CLEAR); Urine Color Yellow (Yellow); Urobilinogen Urine Neg (Negative); pH Urine 6 (5-7)
[2023-01-07 23:20] LABS: Add Urine Culture? Yes; Bacteria Urine 4+ /hpf; Squamous Epithelial Cell Urine 0-4 /hpf (0-5)
[2023-01-07] MEDS: ketorolac 30 mg/mL INJ 15 MG IVP (23:46)
[2023-01-08 00:28] VITALS: BP 149/62; PULSE 63; RESP 16; O2SAT 99
== END 2023-01-08 00:21 | disposition home or self-care (01) ==
PROVIDERS: Nurse Practitioner Family; Emergency Provider Emergency Medicine; PCP Family Medicine
DX: G43.109 Migraine with aura, not intractable, without status migrainosus (principal); I10 Essential (primary) hypertension
CPT/HCPCS: 36415; 70450; 80053; 81001; 84484; 85025; 85610; 85730; 87077; 87086; 87186; 93005; 96365; 96375; 99285; J1885; J2765; J3010; J3490

== ENCOUNTER 2024-02-21 13:03 | Outpatient (CLI) | payer BC, SELFPAY ==
--- NOTE | 2024-02-21 13:07 | MM_ITS ---
WS: [id number] BILATERAL 3D TOMOSYNTHESIS DIGITAL SCREENING MAMMOGRAPHY WITH CAD CLINICAL INFORMATION: SCREENING HISTORY: Screening mammogram. No current complaints. COMPARISON: 2022 TECHNIQUE: Bilateral CC and MLO views. FINDINGS: Scattered fibroglandular densities bilaterally. No suspicious focal mass, asymmetry, calcifications, or architectural distortion. No evidence of malignancy. Stable lobulated nodular density likely intra mammary lymph node anterior LEFT breast. This is unchanged since 2018 MM/MM scr tomosynthesis [id number] IMPRESSION: DENSITY: There are scattered areas of fibroglandular density. BI-RADS: 2 - Benign. FOLLOW UP: 1 Year Follow-up Recommend return to annual screening mammography.
== END 2024-02-21 13:04 | disposition home or self-care (01) ==
LOC: RAD 13:04
PROVIDERS: PCP Family Medicine; Visit Provider Family Medicine
DX: Z12.31 Encounter for screening mammogram for malignant neoplasm of breast (principal); R92.323 Mammographic fibroglandular density, bilateral breasts; N64.89 Other specified disorders of breast
CPT/HCPCS: 77063; 77067

== ENCOUNTER 2024-09-16 17:46 | Inpatient (IN) | payer BC, SELFPAY ==
[2024-09-16] VITALS (7 sets, daily range): BP systolic 108–120; BP diastolic 63–72; PULSE 0–71; RESP 16–17; TEMP 36.6; O2SAT 94–100
--- NOTE | 2024-09-16 17:55 | CTR_ITS ---
PROCEDURE INFORMATION: Exam: CT Head Without Contrast Exam date and time: 09/16/2024 5:57 PM Age: 59 years old Clinical indication: Stroke-like symptoms; Altered mental status/memory loss; Additional info: Symptoms of acute stroke TECHNIQUE: Imaging protocol: Computed tomography of the head without contrast. Radiation optimization: All CT scans at this facility use at least one of these dose optimization techniques: automated exposure control; mA and/or kV adjustment per patient size (includes targeted exams where dose is matched to clinical indication); or iterative reconstruction. Other technique: STROKE PROTOCOL was implemented. COMPARISON: CT head wo con* [id number] 01/07/2023 8:12 PM RADIATION DOSE METRICS: Total DLP (mGy-cm): 1084.88 FINDINGS: Brain: No intracranial hemorrhage. No edema or mass effect. No significant deep white matter abnormality. 5 mm calcified nodule may represent small dural calcification associated with the transverse sinus or could represent a tiny meningioma. Cerebral ventricles: Normal ventricles. Paranasal sinuses: The paranasal sinuses are clear. Mastoid air cells: The mastoid air cells are clear. Bones: No acute osseous abnormalities are seen. Soft tissues: The soft tissues are within normal limits. CT/CT head thrombolytic [id number] IMPRESSION: No acute intracranial pathology. ASSESSMENT: ASPECTS ([place] Stroke Program Early CT Score) is 10.
--- NOTE | 2024-09-16 17:55 | CTR_ITS ---
PROCEDURE INFORMATION: Exam: CTA Head With Contrast, Arteriography Exam date and time: 09/16/2024 6:04 PM Age: 59 years old Clinical indication: Weakness; Additional info: CVA TECHNIQUE: Imaging protocol: Computed tomographic angiography of the head with contrast. Exam focused on the arteries. 3D rendering (Not supervised by radiologist): MIP and/or 3D reconstructed images were created by the technologist. Radiation optimization: All CT scans at this facility use at least one of these dose optimization techniques: automated exposure control; mA and/or kV adjustment per patient size (includes targeted exams where dose is matched to clinical indication); or iterative reconstruction. Contrast material: OMNIPAQUE 350; Contrast volume: 100 ml; Contrast route: INTRAVENOUS (IV); COMPARISON: CT head thrombolytic [id number] 09/16/2024 5:57 PM RADIATION DOSE METRICS: Total DLP (mGy-cm): 449.84 FINDINGS: ANTERIOR CIRCULATION: Right internal carotid artery: Intracranial segment is patent with no significant stenosis. No aneurysm. Right middle cerebral artery: No occlusion or significant stenosis. No aneurysm. Right anterior cerebral artery: No occlusion or significant stenosis. No aneurysm. Left internal carotid artery: Intracranial segment is patent with no significant stenosis. No aneurysm. Left middle cerebral artery: No occlusion or significant stenosis. No aneurysm. Left anterior cerebral artery: No occlusion or significant stenosis. No aneurysm. POSTERIOR CIRCULATION: Right vertebral artery: No occlusion or significant stenosis. No aneurysm. Left vertebral artery: No occlusion or significant stenosis. No aneurysm. Basilar artery: No occlusion or significant stenosis. No aneurysm. Right posterior cerebral artery: No occlusion or significant stenosis. No aneurysm. Left posterior cerebral artery: No occlusion or significant stenosis. No aneurysm. Brain: No definite mass, mass effect, or midline shift. Cerebral ventricles: No ventriculomegaly. Bones/joints: Unremarkable. No acute fracture. Soft tissues: Unremarkable. PROCEDURE INFORMATION: Exam: CTA Neck With Contrast Exam date and time: 09/16/2024 6:04 PM Age: 59 years old Clinical indication: Weakness; Additional info: CVA TECHNIQUE: Imaging protocol: Computed tomographic angiography of the neck with contrast. Exam focused on the cervical segments of the vasculature. 3D rendering (Not supervised by radiologist): MIP and/or 3D reconstructed images were created by the technologist. Radiation optimization: All CT scans at this facility use at least one of these dose optimization techniques: automated exposure control; mA and/or kV adjustment per patient size (includes targeted exams where dose is matched to clinical indication); or iterative reconstruction. Contrast material: OMNIPAQUE 350; Contrast volume: 100 ml; Contrast route: INTRAVENOUS (IV); COMPARISON: CT head thrombolytic [id number] 09/16/2024 5:57 PM RADIATION DOSE METRICS: Total DLP (mGy-cm): 449.84 FINDINGS: Limitations: Motion artifact in the lower neck. Right common carotid artery: No stenosis. No dissection or occlusion. Right internal carotid artery: No stenosis of the extracranial segment. No dissection or occlusion. Right external carotid artery: No occlusion or stenosis of the origin. Left common carotid artery: No stenosis. No dissection or occlusion. Left internal carotid artery: No stenosis of the extracranial segment. No dissection or occlusion. Left external carotid artery: No occlusion or stenosis of the origin. Right vertebral artery: No stenosis. No dissection or occlusion. Left vertebral artery: No stenosis. No dissection or occlusion. Salivary glands: Several small (5 mm or less) hyperdense nodules in the bilateral parotid glands may reflect small intraparotid lymph nodes. Soft tissues: Normal. No significant soft tissue swelling. Bones/joints: No acute fracture. CT/CT angio headneck* [id number] IMPRESSION: No large vessel stenosis or occlusion. IMPRESSION: 1. No stenosis or occlusion. 2. Several small (5 mm or less) hyperdense nodules in the bilateral parotid glands may reflect small intraparotid lymph nodes. Recommend clinical follow-up. REFERENCES: NASCET CRITERIA. The degree of stenosis in the cervical segment of the internal carotid artery is based on NASCET criteria. Normal is no stenosis. Mild is less than 50% stenosis. Moderate is 50-69% stenosis. Severe is 70% to 99% stenosis. Total occlusion is no detectable patent lumen.
--- NOTE | 2024-09-16 18:09 | W.ED.NEUROSD ---
HPI - Neuro Symptoms/Deficit General: Chief Complaint: Neuro Symptoms/Deficit Stated Complaint: stroke like symptoms Time Seen by Provider: 09/16/24 18:02 History of Present Illness: 59-year-old female with a history of TIA, hypertension and chronic anticoagulation on Eliquis who presents the emergency room with strokelike symptoms. Last known well time was at 12:30 PM. She states that she has been having some weakness in her left leg. Weakness in left arm with some tingling. Left facial tingling and some left facial droop. Numbness in her left face. She says she is had some weakness on the left side since she had a stroke/TIA a couple of years ago. Related Data Home Medications ?Medication ?Instructions ?Recorded ?Confirmed albuterol sulfate 90 mcg/actuation 2 puff inhalation Q4H PRN 02/18/21 02/18/21 aerosol inhaler Shortness Of Breath apixaban 5 mg tablet (Eliquis) 5 mg PO BID 11/30/23 11/30/23 lisinopril 10 mg tablet 10 mg PO DAILY 11/30/23 11/30/23 Allergies Allergy/AdvReac Type Severity Reaction Status Date / Time hydromorphone (From Dilaudid) Allergy ADR-Nausea Verified 11/30/23 13:09 meperidine (From Demerol) Allergy ADR-Vomitin Verified 11/30/23 13:09 g [facility] ED PFSH: Social History Smoking and tobacco/nicotine status: unknown if used tobacco/nicotine Physical Exam Narrative: EXAM NARRATIVE: General: Alert, no acute distress. Skin: Warm, dry. Head: Normocephalic, atraumatic. Neck: Supple, trachea midline. Eye: Extraocular movements are intact. Ears, nose, mouth and throat: mucosa moist. Cardiovascular: Regular, Normal peripheral perfusion. Respiratory: Lungs are clear to auscultation, respirations are non-labored, breath sounds are equal, Symmetrical chest wall expansion. Gastrointestinal: Soft, Nontender, Non distended Musculoskeletal: Normal ROM, no deformity. Neurological: Alert and oriented, left leg weakness, lifts off bed only briefly. left arm drift, mild. Left mouth droop with some numbness in the left cheek. No dysarthria. no visual deficits. Psychiatric: Cooperative, appropriate mood & affect. Course Vital Signs: Vital signs: Vital Signs Temperature 97.8 F 09/16/24 18:02 Pulse Rate 63 09/16/24 19:17 Respiratory Rate 16 09/16/24 19:17 Blood Pressure 115/66 09/16/24 19:17 Pulse Oximetry 94 09/16/24 19:17 Oxygen Delivery Me thod Room Air 09/16/24 18:02 MDM - Neuro Symptoms/Deficit Medical Decision Making Medical decision making: Differential diagnosis for patient with focal neurologic deficit(s) includes but not limited to and based on the above HPI, review of systems and physical exam: ischemic stroke, hemorrhagic stroke and embolic stroke secondary to atrial fibrillation), TIA, Yoo's palsey, metabolic encephalopathy with previous stroke. Orders placed to evaluate differential diagnosis based on the above differential, HPI and physical exam NIH Stroke Scale/Score (NIHSS) from [employer] on 09/16/2024 All calculations should be rechecked by clinician prior to use RESULT SUMMARY: 5 points NIH Stroke Scale INPUTS: 1A: Level of consciousness ?> 0 = Alert; keenly responsive 1B: Ask month and age ?> 0 = Both questions right 1C: 'Blink eyes' & 'squeeze hands' ?> 0 = Performs both tasks 2: Horizontal extraocular movements ?> 0 = Normal 3: Visual potts ?> 0 = No visual loss 4: Facial palsy ?> 2 = Partial paralysis (lower face) 5A: Left arm motor drift ?> 1 = Drift, but doesn't hit bed 5B: Right arm motor drift ?> 0 = No drift for 10 seconds 6A: Left leg motor drift ?> 2 = Drift, hits bed 6B: Right leg motor drift ?> 0 = No drift for 5 seconds 7: Limb Ataxia ?> 0 = No ataxia 8: Sensation ?> 0 = Normal; no sensory loss 9: Language/aphasia ?> 0 = Normal; no aphasia 10: Dysarthria ?> 0 = Normal 11: Extinction/inattention ?> 0 = No abnormality Stroke evaluation: Stroke was called on presentation. Patient is out of the window for time for TNKase as this started at around 11:30 AM. It is now 7:00 PM. She is also on Eliquis. There is no large vessel occlusion so she would not need intervention. CT head: No acute intracranial process. no intracranial hemorrhage, no evidence of infarct. no evidence of acute fracture.This was reviewed and interpreted by myself the ER physician. EKG: Time 1814. Rate 57. Sinus bradycardia, No ST-T changes, no ectopy, normal [place] & QRS intervals, This was reviewed and interpreted by myself the ER physician at 1820. CTA of the head and neck: No obvious stenosis or occlusions are identified. No mass. This was reviewed and interpreted by myself the emergency room physician. I also reviewed the radiology report. Lab Review: Laboratory results were reviewed and interpreted by myself the emergency room physician. No leukocytosis. No anemia. No renal failure. No urinary tract infection. Drug screen is negative. Urine does appear a bit concentrated. Patient might be a bit dehydrated but she says she has been drinking water all day I reviewed the patient's medical record. Reexamination: Patient remained stable. No increased work of breathing. No altered mental status. Still with left-sided facial palsy, leg weakness and arm weakness. She also complains of a migraine headache. Consultation: I spoke with Dr. Veras who is on-call for the hospitalist service who agrees to admission. Assessment and plan: Left-sided weakness Headache History of stroke Dehydration -aspirin in ER> ?Normal saline bolus in the emergency room -I discussed the patient with the hospitalist on-call who is admitting the patient. - Discussed findings and plan with patient. Answered any questions. - All laboratory values were reviewed and interpreted personally by myself, the ER physician - All imaging was reviewed and interpreted personally by myself, the ER physician. - Evaluation and treatment of this problem were appropriate in the emergency setting Lab Data 09/16/24 18:29 09/16/24 18:[address] 09/16/24 17:55 IMPRESSION: No acute intracranial pathology. ASSESSMENT: ASPECTS ([place] Stroke Program Early CT Score) is 10. ADDENDUM: 09/16/241815 ADDENDUM: THIS REPORT CONTAINS FINDINGS THAT MAY BE CRITICAL TO PATIENT CARE. The findings were verbally communicated via telephone conference with Dr. Lares at 6:14 PM CDT on 09/16/2024. The findings were acknowledged and understood. Head/Neck CTA 09/16/24 17:55 IMPRESSION: No large vessel stenosis or occlusion. IMPRESSION: 1. No stenosis or occlusion. 2. Several small (5 mm or less) hyperdense nodules in the bilateral parotid glands may reflect small intraparotid lymph nodes. Recommend clinical follow-up. REFERENCES: NASCET CRITERIA. The degree of stenosis in the cervical segment of the internal carotid artery is based on NASCET criteria. Normal is no stenosis. Mild is less than 50% stenosis. Moderate is 50-69% stenosis. Severe is 70% to 99% stenosis. Total occlusion is no detectable patent lumen. Laboratory Results WBC 9.65 10^3/uL (3.29-11.43) 09/16/24 18: RBC 3.79 10^6/uL (3.85-5.65) L 09/16/24 18:29 Hgb 10.90 g/dL (11.27-16.99) L 09/16/24 18:29 Hct 32.8 % (36-47) L 09/16/24 18:29 MCV 86.5 fl (85-98) 09/16/24 18:29 MCH 28.8 pg (27-33) 09/16/24 18:29 MCHC 33.2 g/dL (30-55) 09/16/24 18: RDW 14.2 % (12.1-15.1) 09/16/24 18: Plt Count 207 10^3/cmm (157-399) 09/16/24 18:29 MPV 11.5 fL (7.4-10.4) H 09/16/24 18:29 Neut % (Auto) 49.2 % 09/16/24 18:29 Lymph % (Auto) 42.3 % 09/16/24 18:29 [place] % (Auto) 5.9 % 09/16/24 18:29 Eos % (Auto) 1.6 % 09/16/24 18:29 Baso % (Auto) 0.8 % 09/16/24 18:29 Neut # (Auto) 4.75 10^3/uL (1.8-7.7) 09/16/24 18:29 Lymph # (Auto) 4.1 10^3/uL (0.8-4.8) 09/16/24 18:29 [place] # (Auto) 0.6 10^3/uL (0.2-0.9) 09/16/24 18:29 Eos # (Auto) 0.2 10^3/uL (0.0-0.8) 09/16/24 18: Baso # (Auto) 0.1 10^3/uL (0.0-0.1) 09/16/24 18: Nucleated RBC % (auto) 0 % 09/16/24 18: Nucleated RBCs # 0.0 /100WBC 09/16/24 18: PT 13.20 SECONDS (12.1-14.9) 09/16/24 18: INR 0.93 (0.8-1.2) 09/16/24 18: APTT 32.9 SECONDS (23.9-36.7) 09/16/24 18: Sodium 137 mmol/L (136-145) 09/16/24 18: Potassium 4.3 mmol/L (3.5-5.1) 09/16/24 18: Chloride 102 mmol/L (98-107) 09/16/24 18: Carbon Dioxide 22 mmol/L (22-29) 09/16/24 18: Anion Gap 17.3 (5-19) 09/16/24 18: BUN 13 mg/dL (6-20) 09/16/24 18: Creatinine 0.6 mg/dL (0.5-0.9) 09/16/24 18: GFR Calculation 102.7 mL/min (90-130) 09/16/24 18: Glucose 79 mg/dL (65-115) 09/16/24 18: POC Glucose 88 mg/dL (70-110) 09/16/24 17:52 Calculated Osmolality 283 mOsm/kg (285-295) L 09/16/24 18: Lactic Acid 0.9 mmol/L (0.5-2.2) 09/16/24 18: Calcium 8.6 mg/dL (8.5-10.5) 09/16/24 18: Total Bilirubin 0.2 mg/dL (0.15-1.2) 09/16/24 18: AST 15 U/L (0-32) 09/16/24 18:29 ALT 11 U/L (0-33) 09/16/24 18: Alkaline Phosphatase 78 U/L (35-105) 09/16/24 18: C-Reactive Protein 3.0 mg/L (0.0-4.9) 09/16/24 18: Total Protein 6.1 g/dL (6.6-8.7) L 09/16/24 18: Albumin 3.6 g/dL (3.5-5.2) 09/16/24: Globulin 2.5 g/dL (1.3-4.6) 09/16/24 18 Procalcitonin 0.02 ng/mL (0-0.5) 09/16/24: Urine Color Yellow (Yellow) 09/16/24 Urine Appearance Clear (CLEAR) 09/16/24: Urine pH 6.5 (5-7) 09/16/24: Ur Specific [place] 1.048 (1.005-1.030) H 09/16/24: Urine Protein Negative (Negative) 09/16/24: Urine Glucose (UA) Negative (Normal) 09/16/24: Urine Ketones Negative (Negative) 09/16/24: Urine Blood Negative (Negative) 09/16/24: Urine Nitrate Negative (Negative) 09/16/24: Urine Bilirubin Negative (Negative) 09/16/24 Urine Urobilinogen 0.2 mg/dL (Negative) 09/16/24: Ur Leukocyte Esterase Negative (Negative) 09/16/24: Urine RBC 0-2 /hpf (0-2) 09/16/24 18: Urine WBC 0-5 /hpf (0-5) 09/16/24 18: Ur Squamous Epith Cells 6-10 /hpf (0-5) 09/16/24 Amorphous Sediment Not Reportable 09/16/24 Urine Bacteria None seen /hpf (NONE) 09/16/24 Hyaline Casts 0-4 /lpf H 09/16/24 18: Urine Opiates Screen Negative ng/mL (Negative) 09/16/24: Ur Barbiturates Screen Negative ng/mL (Negative) 09/16/24 18:29 Ur Phencyclidine Scrn Negative ng/mL (Negative) 09/16/24 18:29 Ur Amphetamines Screen Negative ng/mL (Negative) 09/16/24 18:29 U Benzodiazepines Scrn Negative ng/mL (Negative) 09/16/24 18:29 Urine Cocaine Screen Negative ng/mL (Negative) 09/16/24 18:29 U Marijuana (THC) Screen Negative ng/mL (Negative) 09/16/24 18:29 All radiology interpretation(s) finalized by discharge Discharge Plan Discharge Patient Disposition: Placed in Observation Clinical Impression: Left-sided weakness Coding Level of Care Code 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
[2024-09-16] MEDS: iohexol 350 mg/mL 500 mL Btl (per mL) IV (18:10)
--- NOTE | 2024-09-16 18:15 | ECG_ITS ---
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 Measurements Intervals [place] Rate: 57 P: 59 NH: 174 QRS: 31 QRSD: 82 T: 49 QT: 434 QTc: 423 Interpretive Statements SINUS BRADYCARDIA LOW QRS VOLTAGE IN PRECORDIAL LEADS [QRS DEFLECTION < 1.0 mV IN CHEST LEADS] Compared to ECG 01/07/2023 20:06:57 Low QRS voltage now present Sinus rhythm no longer present T-wave abnormality no longer present Possible ischemia no longer present Electronically Signed On 09-16-2024 21:49:58 CDT by Chon Christensen M.D. [email or web address]
[2024-09-16 18:36] LABS: Basophils # 0.1 10^3/uL (0.0-0.1); Basophils % 0.8 %; Eosinophils # 0.2 10^3/uL (0.0-0.8); Eosinophils % 1.6 %; Hematocrit 32.8 % (36-47); Lymphocytes # 4.1 10^3/uL (0.8-4.8); Lymphocytes % 42.3 %; Mean Corpuscular HGB Conc 33.2 g/dL (30-55); Mean Corpuscular Hemoglobin 28.8 pg (27-33); Mean Corpuscular Volume 86.5 fl (85-98); Mean Platelet Volume 11.5 fL (7.4-10.4); Monocytes # 0.6 10^3/uL (0.2-0.9); Monocytes % 5.9 %; Neutrophils # 4.75 10^3/uL (1.8-7.7); Neutrophils % 49.2 %; Nucleated Red Blood Cells % 0 %; Platelet Count 207 10^3/cmm (157-399); Red Blood Count 3.79 10^6/uL (3.85-5.65); Red Cell Distribution Width 14.2 % (12.1-15.1); White Blood Count 9.65 10^3/uL (3.29-11.43)
[2024-09-16 18:39] LABS: Bilirubin Urine Negative (Negative); Blood Urine Negative (Negative); Glucose Urine UA Negative (Normal); Ketones Urine Negative (Negative); Leukocyte Esterase Urine Negative (Negative); Nitrate Urine Negative (Negative); Protein Urine Negative (Negative); Urine Appearance Clear (CLEAR); Urine Color Yellow (Yellow); Urobilinogen Urine 0.2 mg/dL (Negative); pH Urine 6.5 (5-7)
[2024-09-16 18:42] LABS: Add Urine Microscopic? YES; Bacteria Urine None Seen /hpf; Hyaline Casts Urine 0-4 /lpf; RBC Urine 0-2 /hpf (0-2); WBC Urine 0-5 /hpf (0-5)
[2024-09-16 18:46] LABS: Amphetamines Screen Urine Negative (Negative); Barbiturates Screen Urine Negative (Negative); Benzodiazepines Screen Urine Negative (Negative); Cocaine Screen Urine Negative (Negative); INR 0.93 (0.8-1.2); Opiate Screen Urine Negative (Negative); PCP Screen Urine Negative (Negative); Specific Gravity, Urine 1.048 (1.005-1.030); THC Screen Urine Negative (Negative)
[2024-09-16 18:47] LABS: Partial Thromboplastin Time 32.9 SECONDS (23.9-36.7)
[2024-09-16 18:49] LABS: Glucose Point of Care 88 mg/dL (70-110)
[2024-09-16 18:54] LABS: Lactic Sepsis W/Reflex 0.9 mmol/L (0.5-2.2)
[2024-09-16 18:59] LABS: Alanine Aminotransferase 11 U/L (0-33); Albumin Level 3.6 g/dL (3.5-5.2); Alkaline Phosphatase 78 U/L (35-105); Anion Gap 17.3 (5-19); Aspartate Amino Transferase 15 U/L (0-32); Blood Urea Nitrogen 13 mg/dL (6-20); Calcium 8.6 mg/dL (8.5-10.5); Carbon Dioxide 22 mmol/L (22-29); Chloride 102 mmol/L (98-107); Creatinine Clr Calc Pharmacy 115.5445; Globulin 2.5 g/dL (1.3-4.6); Glomerular Filtration Rate 102.7 mL/min (90-130); Glucose 79 mg/dL (65-115); Osmolality Calculated 283 mOsm/kg (285-295); Potassium 4.3 mmol/L (3.5-5.1); Sodium 137 mmol/L (136-145); Total Bilirubin 0.2 mg/dL (0.15-1.2); Total Protein 6.1 g/dL (6.6-8.7)
[2024-09-16 19:06] LABS: Procalcitonin 0.02 ng/mL (0-0.5)
[2024-09-16] MEDS: sodium chloride 0.9% 1,000 ML 999 ML IV (19:25)
[2024-09-16] MEDS: aspirin 81 mg Chew Tablet 324 MG PO (19:40)
[2024-09-17] VITALS (13 sets, daily range): BP systolic 94–127; BP diastolic 60–80; PULSE 65–80; RESP 13–20; TEMP 36.5–36.8; O2SAT 96–97
--- NOTE | 2024-09-17 06:15 | USCV_ITS ---
Darling Reyes Age: 59 Gender: F : 1965 Exam Date: 09/17/2024 08:40 Ordering Phys: Elda Veras MD Technologist: Exam Location: [facility] Indication: cva BP: 110 / 66 HR: 67 Rhythm: Sinus Technical Quality: Adequate MEASUREMENTS (Male / Female) Normal Values 2D ECHO LV Diastolic Diameter PLAX 3.5 cm 4.2 - 5.9 / 3.9 - 5.3 cm IVS Diastolic Thickness 1.3 cm 0.6 - 1.0 / 0.6 - 0.9 cm IVS Systolic Thickness 1.6 cm LVPW Diastolic Thickness 1.1 cm 0.6 - 1.0 / 0.6 - 0.9 cm LVPW Systolic Thickness 1.7 cm LVOT Diameter 2.2 cm LV Ejection Fraction 2D Teich 61.0 % LV Ejection Fraction MOD 4C 63.2 % LV Ejection Fraction MOD 2C 55.9 % LV Ejection Fraction 2C AL 56.0 % LA Diameter 3.2 cm RA Systolic Volume 4C AL 44.0 ml RA Systolic Volume 4C MOD 42.7 ml Aorta at Sinotubular Diameter 3.2 cm IVC Diameter 2.1 cm M-MODE LA Ao Ratio MM 1.3 AV Cusp Separation MM 2.1 cm DOPPLER AV Peak Velocity 127.0 cm/s LVOT Peak Velocity 87.0 cm/s AV Area Cont Eq vti 3.3 cm squared AV Area Cont Eq pk 2.5 cm squared MV Peak Velocity 82.0 cm/s MV Area PHT 6.5 cm squared Mitral E to A Ratio 0.9 TV Peak Velocity 177.0 cm/s TR Peak Velocity 192.0 cm/s TR Peak Gradient 14.7 mmHg TV Peak E Velocity 74.0 cm/s PV Peak Velocity 104.0 cm/s FINDINGS Left Ventricle Normal left ventricular size and systolic function, EF 56%. No regional wall motion abnormalities. Mild left ventricular hypertrophy. Right Ventricle Normal right ventricular size and systolic function. Right Atrium The right atrium is normal in size. Left Atrium The left atrium is normal in size. Mitral Valve No gross abnormalities noted Aortic Valve No gross abnormalities noted Tricuspid Valve Tricuspid valve not well visualized. Pulmonic Valve Mild pulmonary valve regurgitation. Pericardium Normal pericardium without effusion. Aorta Normal aortic annulus size. IVC Normal inferior vena cava. CONCLUSIONS Normal left ventricular size and systolic function, EF 56%. No regional wall motion abnormalities. Mild left ventricular hypertrophy. Normal cardiac chamber sizes.. Mild pulmonary valve regurgitation. There is no pericardial effusion. There are no intracardiac masses. No similar previous studies are available for comparison Dr Chon Christensen MD FAC (Electronically Signed) Final Date: 17 September 2024 16:44 S
[2024-09-17 07:50] LABS: Alanine Aminotransferase 11 U/L (0-33); Albumin Level 3.6 g/dL (3.5-5.2); Alkaline Phosphatase 83 U/L (35-105); Anion Gap 13.6 (5-19); Aspartate Amino Transferase 14 U/L (0-32); Blood Urea Nitrogen 11 mg/dL (6-20); Calcium 9.1 mg/dL (8.5-10.5); Carbon Dioxide 24 mmol/L (22-29); Chloride 108 mmol/L (98-107); Globulin 2.6 g/dL (1.3-4.6); Glomerular Filtration Rate 102.7 mL/min (90-130); Glucose 87 mg/dL (65-115); Osmolality Calculated 291 mOsm/kg (285-295); Potassium 4.6 mmol/L (3.5-5.1); Sodium 141 mmol/L (136-145); Total Protein 6.2 g/dL (6.6-8.7)
[2024-09-17] MEDS: aspirin 325 mg Tablet PO (08:20)
--- NOTE | 2024-09-17 09:20 | PM.HP ---
Providers/Chief Complaint Admitting Physician: Elda Veras MD--- patient seen before midnight Primary Care Provider: Juju Treviño MD Chief Complaint: stroke like symptoms History of Present Illness Darling Reyes is a 59 year old female with medical history significant for atrial fibrillation on on Eliquis. Patient does have history of migraine. Patient does have complicated migraine. She came to the emergency room for further evaluation of having had worsening left-sided hemiparesis. Patient had had a stroke in 2019 which was a right-sided CVA with left-sided hemiparesis. Patient woke up on this day of presentation not feeling well but still went to walk. At work she was not feeling well and then she decided to go home at 12:30 PM patient stayed into the evening before coming into the emergency room. She is on Eliquis the question is why it is Eliquis is not working if she should have any embolic stroke. CTA CT were unremarkable I have gone through stroke protocol and ordered MRI for today. A differential here could be complicated migraine as well. Must continue to treat and optimize. Patient given full aspirin. Review of Systems Narrative: System review upon 10 organ review we are only noted for worsening left sided hemiparesis though patient also had some fogginess cannot stay clear on the thoughts. Medications/Allergies Home Medications ?Medication ?Instructions ?Recorded ?Confirmed ?Last Taken ?Type albuterol sulfate 90 mcg/actuation 2 puff inhalation Q4H PRN 02/18/21 09/16/24 Unknown History aerosol inhaler Shortness Of Breath apixaban 5 mg tablet (Eliquis) 5 mg PO BID 11/30/23 09/16/24 Unknown History lisinopril 10 mg tablet 10 mg PO DAILY 11/30/23 09/16/24 Unknown History Allergies Allergy/AdvReac Type Severity Reaction Status Date / Time hydromorphone (From Dilaudid) Allergy ADR-Nausea Verified 11/30/23 13:09 meperidine (From Demerol) Allergy ADR-Vomitin Verified 11/30/23 13:09 g PFSH Acute PFSH: Social History Smoking and tobacco/nicotine status: unknown if used tobacco/nicotine Vitals/I&O/Wt Last Vital Signs Temp 97.9 F 09/17/24 07:03 Pulse 80 06/17/25 07:03 Resp 16 09/17/24 07:03 BP 110/68 09/17/24 07:03 Pulse Ox 97 09/17/24 07:03 O2 Del Method Room Air 09/17/24 07:03 09/16/24 09/17/24 09/17/24 22:59 06:59 14:59 Intake Total 1000 / 1000 Balance 1000 / 1000 Weight last 48 hrs Weight 83.688 kg Weight 83.688 kg Weight 86.636 kg Physical Exam Narrative: General The patient looks well in no apparent distress at this time of evaluation. However patient is concerned. HEENT significant for headaches good visual acuity no visual problems. Cardiovascular heart rate is controlled in the 80s Lungs are clear Abdomen soft nontender nondistended unremarkable Extremities are significant for left-sided hemiparesis weaker than the right. Neurology no focality Data 09/16/24 18:29 09/17/24 06:58 Micro: Microbiology 09/16/24 19:17 Blood Culture - Preliminary Blood SPECIMEN COLLECTED 09/16/24 19:19 Blood Culture - Preliminary Blood SPECIMEN COLLECTED A&P Assessment and plan (1) Migraine syndrome: -Patient with daily migraine at baseline and prior an accident with head injury in 2019 - Patient was doing okay under the care and medication from [facility] when she stopped everything because she was not having any more headache while on medication - Strokelike symptom of left sided hemiparesis that is getting worse could be due to complicated migraine however CVA cannot be ruled out at this time - Follow-up with MRI of the brain since the CT and CTA were unremarkable - Patient is on Eliquis and should this be a CVA Eliquis must not be walking - Cardiology consulted I spoke to Dr. Christensen who is going to see the patient and I spoke to the primary attending today to most likely get neurology involved as well. - Patient need to go back to [facility] outpatient with her migraine is controlled and did not have any daily headache and she had agreed as a part of discharge planning when the patient is medically stable to leave the hospital. (2) Hypotension: Patient had diarrhea 24 hours prior to presentation and presented with hypotension, could this have exacerbated the condition of volume contraction leading to strokelike event. Normal saline given and patient responded. Will hold patient antihypertensive medicine for cerebral perfusion Patient is on full aspirin (3) History of diarrhea: Gastroenteritis with diarrhea must have given patient much volume contraction with hypotension. - Patient does not have any further stool to produce this has stopped before patient presented - Continue gentle hydration. 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 (5) Dehydration: Optimized by rehydration with normal saline PDMP PDMP Reviewed: Last Reviewed 09/17/24 09:46 by Elda Veras MD Attestations Medical Necessity Statement*: Patient with new left sided hamate paresis that is worse than baseline days of admission for optimization of care with consultation to further evaluate if patient who is on Eliquis and still having strokelike symptoms versus complicated migraine. Deserve to have at least 2 midnights. Coding Level of Care Code 22089 Diagnoses Migraine syndrome G43.909 Hypotension I95.9 History of diarrhea Z87.898 Acute stroke due to embolism of right middle cerebral artery I63.411 Dehydration E86.0 Time Spent (min) 60
--- NOTE | 2024-09-17 09:28 | PC.NURSE ---
compliance coordinator rounds at 0730, gave patient stroke education book, patient states she is doing better but still noticing left sided weakness and lack of fine motor coordination, left sided facial droop, and left sided sensory/numbness.
--- NOTE | 2024-09-17 09:30 | PC.CHAP ---
Pastoral Care Encounter/Spiritual Assessment Type of Contact [] Declined automotive buyer visit [] Patient/Family/Request visit [] Outpatient visit [] Follow-up visit [] Physician referral [] Code/Alert [x] Routine visit [] Staff referral [] Actively dying [] Patient sleeping [] Family support [] [] Out of room [] Palliative care [] [] Receiving care in room [] Pre-surgical visit [] Trauma [] Long length of stay [] ICU visit [] Other: Relational/Emotional Strength [x] Patient feels connected with others/family/visitors/staff [] Distress [] Loneliness/isolation [] Abandonment Spirituality of Patient [x] Person of Marj [] Attends Jain of their Marj [x] Believes in Prayer [] Reads Bible or Rastafarian materials [] There are Spiritual issues to be addressed Client Service Professional Interventions [] Prayer [x] Active listening [x] Non-anxious presence [x] Spiritual/emotional support [] Crisis/trauma care [] Spiritual counseling [] Bereavement support [] Provided bereavement packet [] Provided Bible/devotional materials [] Provided toy/stuffed animal, coloring book to patient or family member [] Provided Communion [] Anointing/[place] [] Salvation [x] Completed spiritual assessment [x] Other: Staff entered. Will return for prayer. Impact on Illness or Injury [] Angry [] Fearful [] Anxious [] Often cries [] Exhaustion [] Unable to work [] Unable to attend buddhist [] Unable to walk/stand [] Unable to read [] Unable to drive [] Unable to eat/drink [] Unable to sleep [] Unable to be with family [] Patient intubated [] Other: Summary Time spent with patient 5 min
--- NOTE | 2024-09-17 10:36 | MRR_ITS ---
PROCEDURE INFORMATION: Exam: MR Head Without and With Contrast Exam date and time: 09/17/2024 4:29 PM Age: 59 years old Clinical indication: Speech disturbance and weakness, extremity and weakness, facial; Slurred speech; Additional info: Stroke like sxs TECHNIQUE: Imaging protocol: Magnetic resonance imaging of the head without and with contrast. COMPARISON: CT angio headneck* [id number] 09/16/2024 6:04 PM FINDINGS: Brain: Normal. No acute infarct. No hemorrhage. No significant white matter disease. No edema. Cerebral ventricles: Normal. No ventriculomegaly. Bones: Unremarkable. Paranasal sinuses: Normal as visualized. No acute sinusitis. Mastoid air cells: Normal as visualized. No mastoid effusion. Orbital cavities: Unremarkable. Vasculature: There is an 8 mm rounded filling defect lying within both transverse sinuses. In addition, there are multiple rounded filling defects lying within the sagittal sinus measuring up to 5 mm in diameter. These are highly suspicious for thrombi but appear to be nonocclusive. Soft tissues: Unremarkable. MR/MR head wo/w con [id number] IMPRESSION: Multiple filling defects involving the transverse and sagittal sinuses suggesting venous thrombosis. Otherwise normal study.
--- NOTE | 2024-09-17 11:22 | P.PN_ITS ---
Subjective 2 Subjective: Patient reports history of stroke 2 years ago resulting in minimal left-sided weakness and occasional numbness and tingling in the left side of her face. She says that no MRI was done at that time and there was discussion that this was a migraine with hemiparesis versus stroke. She has received 2 different diagnoses Yesterday when she was not feeling well and her symptoms worsened she did have relative hypotension with systolic blood pressure in the 90s Her symptoms are better today although she still concerned about her weakness. Note her blood pressures are running 140-170 systolic I suspect she has hypotension related ischemia to the rikc-infarct area. However since she has not had an MRI done we will complete test today. Depending on results can do inpatient versus outpatient neurology consult Vitals/I&O/Wt Last Vital Signs Temp 98.0 F 09/17/24 10:57 Pulse 65 09/17/24 10:57 Resp 20 H 09/17/24 10:57 BP 127/80 09/17/24 10:57 Pulse Ox 97 09/17/24 10:57 O2 Del Method Room Air 09/17/24 10:57 09/16/24 09/17/24 09/17/24 22:59 06:59 14:59 Intake Total 1000 / 1000 Balance 1000 / 1000 Weight last 48 hrs Weight 83.688 kg Weight 83.688 kg Weight 86.636 kg Physical Exam 2 Narrative: Patient is alert and oriented to person place time and situation no acute distress Neuro patient is weaker to motor testing on the left side but she has no drift in arms or legs she reports a sensory change in her face only so her NIH is 1 Heart regular normal S1-S2 without murmurs clicks gallops or rubs Lungs clear to auscultation without wheezes rales or rhonchi Abdomen soft nontender nondistended positive bowel sound Extremities no clubbing cyanosis or edema Data 09/16/24 18:29 09/17/24 06:58 Micro: Microbiology 09/16/24 19:17 Blood Culture - Preliminary Blood SPECIMEN COLLECTED 09/16/24 19:19 Blood Culture - Preliminary Blood SPECIMEN COLLECTED A&P Assessment and plan (1) Headaches due to old head injury: Unclear since patient has daily headaches that this is a migraine headache. Either way patient deserves neurology consult for assistance with daily headaches. (2) Hypotension: Patient with relative hypotension yesterday. Patient is lost about 60 pounds over a year. She was taking lisinopril 10 mg. Perhaps this is too high of a dose given her weight loss. At this time allow permissive hypertension (3) Left-sided weakness: Differential diagnosis includes migraine with left hemiparesis versus old stroke with left hemiparesis due to hypotension versus new stroke. Check MRI Plan Allow permissive hypertension MRI; to assess for old versus new stroke to help make diagnosis. PDMP PDMP Reviewed: Not Reviewed Attestations 2 Medical Necessity Statement*: Patient requires continued hospitalization for left hemiparesis and identification of stroke. Coding Level of Care Code Acute Code for Chg Fwd Diagnoses Headaches due to old head injury G44.309; S09.90XS Hypotension I95.9 Left-sided weakness R53.1
--- NOTE | 2024-09-17 11:26 | PM.CONSULT ---
Providers/Reason For Consult Consulting Physician/Specialty*: SONIYA Christensen MD/cardiology Reason for Consult*: Patient with atrial fibrillation, on oral anticoagulation, no presenting with a CVA? Requesting Physician: Dr. Rasmussen. Attending Physician: Roberto Rasmussen DO Primary Care Provider: Juju Treviño MD History of Present Illness History of Present Illness Darling Reyes is a 59 year old female is admitted to hospital through the emergency room, where she presented with complaints of headache, tingling and numbness of the left side of the face and also left side of the body. She has a questionable history of atrial fibrillation and is on long-term oral anticoagulation. Cardiology consult is requested for further cardiac evaluation and recommendations. This patient apparently has been in her baseline state of health up until yesterday afternoon when while at work, started having headache, feeling of weakness and diarrhea. Because of the symptoms, she left the job early to go home. She started having tingling and numbness on the left side of the face and also weakness on the left side of the body at home. For these reasons, she was brought to the emergency room by her cousin. According to the patient, she had a more or less similar symptoms approximately 2 years ago. She was seen in the emergency room at that time. She was told by her primary care provider that she had a stroke at that time. She was placed on lisinopril and Eliquis for the stroke. However the patient do not recall anybody telling her about atrial fibrillation. She denies any chest pain or palpitations. No history for any cardiac illnesses in the past. 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 She was not seen by any neurologist for the last stroke. The patient, is still complaining of numbness and tingling of the face and weakness on the left side. Her headache is almost gone. Continues to tingling and numbness and minimal facial droop on the left side. The left upper and lower extremities are slightly weak. No other specific complaints at this time. She has no history for diabetes, peripheral artery disease, kidney disease, liver disease or bleeding disorders. She had a CT of the head and CTA of the head and neck. No significant abnormalities were noted. She had an echocardiogram which was unremarkable. Denies any smoking or alcohol use. No significant family history Review of Systems Narrative: CONSTITUTIONAL: No fever or chills. EYES: No blurring of vision or other visual disturbances lately. ENT: No hoarseness of voice, auditory disturbances or sore throat. CARDIOVASCULAR: As mentioned above. RESPIRATORY: No significant cough. GASTROINTESTINAL: No hematemesis or melena. GENITOURINARY: No dysuria or hematuria. INTEGUMENTARY: No skin rashes or history of skin cancer. NEURO: Recurrent CVA-like symptoms PSYCHIATRIC: No history of psychosis or major depression. HEMATOLOGIC: No bleeding disorders or significant anemia. ENDOCRINE: No history of polyuria or polydipsia. MUSCULOSKELETAL: No recent joint pain or swelling. ALLERGY/IMMUNOLOGY: As mentioned above. Medications/Allergies Home Medications ?Medication ?Instructions ?Recorded ?Confirmed ?Last Taken ?Type albuterol sulfate 90 mcg/actuation 2 puff inhalation Q4H PRN 02/18/21 09/16/24 Unknown History aerosol inhaler Shortness Of Breath apixaban 5 mg tablet (Eliquis) 5 mg PO BID 11/30/23 09/16/24 Unknown History lisinopril 10 mg tablet 10 mg PO DAILY 11/30/23 09/16/24 Unknown History Allergies Allergy/AdvReac Type Severity Reaction Status Date / Time hydromorphone (From Dilaudid) Allergy ADR-Nausea Verified 11/30/23 13:09 meperidine (From Demerol) Allergy ADR-Vomitin Verified 11/30/23 13:09 g Current Medications Generic Name Dose Route Start Last Admin Trade Name Freq PRN Reason Stop Dose Admin Aspirin 325 mg 09/17/24 09:00 09/17/24 08:20 Aspirin 325 Mg Tablet PO 325 mg DAILY ARIANNA Administration PFSH Acute PFSH: Social History Smoking and tobacco/nicotine status: unknown if used tobacco/nicotine Vitals/I&O/Wt Last Vital Signs Temp 98.0 F 09/17/24 10:57 Pulse 65 09/17/24 10:57 Resp 20 H 09/17/24 10:57 BP 127/80 09/17/24 10:57 Pulse Ox 97 09/17/24 10:57 O2 Del Method Room Air 09/17/24 10:57 09/16/24 09/17/24 09/17/24 22:59 06:59 14:59 Intake Total 1000 / 1000 Balance 1000 / 1000 Weight last 48 hrs Weight 184 lb 8 oz Weight 184 lb 8 oz Weight 191 lb Physical Exam Narrative: GENERAL: The patient is alert and oriented times three. Not in any acute distress. HEENT: No significant pallor, icterus or lymphadenopathy.Oral cavity: There are no mucous membrane lesions. NECK: Trachea appears to be central. No masses noted. No JVD or thyromegaly appreciated. RESPIRATORY: Chest is symmetrical. No intercostals muscle retraction or any accessory muscle activation. There is no chest wall tenderness. Breath sounds are heard bilaterally. No rales or rhonchi heard. No evidence of any consolidation. BREASTS: Deferred. HEART: The heart sounds are normal. No S3 or S4. No significant murmurs. No pericardial rub ABDOMEN: No vessel pulsations or distention. No tenderness. No organomegaly appreciated. Bowel sounds are normally heard. : Deferred. RECTAL: Deferred. LYMPHATIC: No lymphadenopathy noted in the neck. EXTREMITIES: No edema or cyanosis. No clubbing. MUSCULOSKELETAL: No acute joint deformities or swelling SKIN: There are no significant rashes or ecchymosis NEUROPSYCHIATRIC: The patient is alert and oriented x3. Appears to be in a good mood. No tremors or rigidity noted. Minimal facial drooping on the left side. Minimal motor weakness of the left upper and lower extremity Data 09/16/24 18:29 09/17/24 06:58 Other Labs: Laboratory Last Values WBC 9.65 10^3/uL (3.29-11.43) 09/16/24 18: RBC 3.79 10^6/uL (3.85-5.65) L 09/16/24 18:29 Hgb 10.90 g/dL (11.27-16.99) L 09/16/24 18:29 Hct 32.8 % (36-47) L 09/16/24 18:29 MCV 86.5 fl (85-98) 09/16/24 18: MCH 28.8 pg (27-33) 09/16/24 18: MCHC 33.2 g/dL (30-55) 09/16/24 18:29 RDW 14.2 % (12.1-15.1) 09/16/24 18:29 Plt Count 207 10^3/cmm (157-399) 09/16/24 18:29 MPV 11.5 fL (7.4-10.4) H 09/16/24 18: Neut % (Auto) 49.2 % 09/16/24 18: Lymph % (Auto) 42.3 % 09/16/24 18: [place] % (Auto) 5.9 % 09/16/24 18: Eos % (Auto) 1.6 % 09/16/24 18: Baso % (Auto) 0.8 % 09/16/24 18: Neut # (Auto) 4.75 10^3/uL (1.8-7.7) 09/16/24 18: Lymph # (Auto) 4.1 10^3/uL (0.8-4.8) 09/16/24 18: [place] # (Auto) 0.6 10^3/uL (0.2-0.9) 09/16/24 18: Eos # (Auto) 0.2 10^3/uL (0.0-0.8) 09/16/24 18: Baso # (Auto) 0.1 10^3/uL (0.0-0.1) 09/16/24 18: Nucleated RBC % (auto) 0 % 09/16/24 18: Nucleated RBCs # 0.0 /100WBC 09/16/24 18: PT 13.20 SECONDS (12.1-14.9) 09/16/24 18: INR 0.93 (0.8-1.2) 09/16/24 18: APTT 32.9 SECONDS (23.9-36.7) 09/16/24 18: Sodium 141 mmol/L (136-145) 09/17/24 06:58 Potassium 4.6 mmol/L (3.5-5.1) 09/17/24 06:58 Chloride 108 mmol/L (98-107) H 09/17/24 06:58 Carbon Dioxide 24 mmol/L (22-29) 09/17/24 06:58 Anion Gap 13.6 (5-19) 09/17/24 06:58 BUN 11 mg/dL (6-20) 09/17/24 06:58 Creatinine 0.6 mg/dL (0.5-0.9) 09/17/24 06:58 GFR Calculation 102.7 mL/min (90-130) 09/17/24 06:58 Glucose 87 mg/dL (65-115) 09/17/24 06:58 POC Glucose 88 mg/dL (70-110) 09/16/24 17:52 Calculated Osmolality 291 mOsm/kg (285-295) 09/17/24 06:58 Lactic Acid 0.9 mmol/L (0.5-2.2) 09/16/24 18:29 Calcium 9.1 mg/dL (8.5-10.5) 09/17/24 06:58 Total Bilirubin 0.2 mg/dL (0.15-1.2) 09/16/24 18:29 AST 14 U/L (0-32) 09/17/24 06:58 ALT 11 U/L (0-33) 09/17/24 06:58 Alkaline Phosphatase 83 U/L (35-105) 09/17/24 06:58 C-Reactive Protein 3.0 mg/L (0.0-4.9) 09/16/24 18:29 Total Protein 6.2 g/dL (6.6-8.7) L 09/17/24 06:58 Albumin 3.6 g/dL (3.5-5.2) 09/17/24 06:58 Globulin 2.6 g/dL (1.3-4.6) 09/17/24 06:58 Procalcitonin 0.02 ng/mL (0-0.5) 09/16/24 18:29 Urine Color Yellow (Yellow) 09/16/24 18: Urine Appearance Clear (CLEAR) 09/16/24 18: Urine pH 6.5 (5-7) 09/16/24 18:29 Ur Specific [place] 1.048 (1.005-1.030) H 09/16/24 18: Urine Protein Negative (Negative) 09/16/24 18: Urine Glucose (UA) Negative (Normal) 09/16/24 18: Urine Ketones Negative (Negative) 09/16/24 18: Urine Blood Negative (Negative) 09/16/24 18: Urine Nitrate Negative (Negative) 09/16/24 18: Urine Bilirubin Negative (Negative) 09/16/24 18: Urine Urobilinogen 0.2 mg/dL (Negative) 09/16/24 18:29 Ur Leukocyte Esterase Negative (Negative) 09/16/24 18:29 Urine RBC 0-2 /hpf (0-2) 09/16/24 18:29 Urine WBC 0-5 /hpf (0-5) 09/16/24 18:29 Ur Squamous Epith Cells 6-10 /hpf (0-5) 09/16/24 18:29 Amorphous Sediment Not Reportable 09/16/24 18:29 Urine Bacteria None seen /hpf (NONE) 09/16/24 18:29 Hyaline Casts 0-4 /lpf H 09/16/24 18:29 Urine Opiates Screen Negative ng/mL (Negative) 09/16/24 18: Ur Barbiturates Screen Negative ng/mL (Negative) 09/16/24 18:29 Ur Phencyclidine Scrn Negative ng/mL (Negative) 09/16/24 18:29 Ur Amphetamines Screen Negative ng/mL (Negative) 09/16/24 18:29 U Benzodiazepines Scrn Negative ng/mL (Negative) 09/16/24 18:29 Urine Cocaine Screen Negative ng/mL (Negative) 09/16/24 18:29 U Marijuana (THC) Screen Negative ng/mL (Negative) 09/16/24 18:29 Micro: Microbiology 09/16/24 19:17 Blood Culture - Preliminary Blood SPECIMEN COLLECTED 09/16/24 19:19 Blood Culture - Preliminary Blood SPECIMEN COLLECTED Other data: CTA of the head and neck 1.. No stenosis or occlusion. 2. Several small (5 mm or less) hyperdense nodules in the bilateral parotid glands may reflect small intraparotid lymph nodes. Recommend clinical follow-up. CT of the head Brain: No intracranial hemorrhage. No edema or mass effect. No significant deep white matter abnormality. 5 mm calcified nodule may represent small dural calcification associated with the transverse sinus or could represent a tiny meningioma. Cerebral ventricles: Normal ventricles. Paranasal sinuses: The paranasal sinuses are clear. Mastoid air cells: The mastoid air cells are clear. Bones: No acute osseous abnormalities are seen. Soft tissues: The soft tissues are within normal limits. EchocardiogramFrom today from today Normal left ventricular size and systolic function, EF 56%. No regional wall motion abnormalities. Mild left ventricular hypertrophy. Normal cardiac chamber sizes.. Mild pulmonary valve regurgitation. There is no pericardial effusion. There are no intracardiac masses. No similar previous studies are available for comparison MRI Multiple filling defects involving the transverse and sagittal sinuses suggesting venous thrombosis. Otherwise normal study. A&P Assessment and plan (1) Left-sided weakness: The etiology is unclear. She has a questionable history of atrial fibrillation but there is no documentation. MRI suggestive of venous thrombosis in the sinuses, this may need to be further evaluated (2) Hypotension: Patient had mild hypotension at the workplace. The etiology is not clear. Currently she is normotensive (3) History of atrial fibrillation: There is no documentation. EKG from 2022 was reviewed. She was found to be normal sinus rhythm at that time. Plan From a cardiac standpoint, a JONAS would be appropriate to evaluate for any cardiac source of embolization or rule out PFO Also may benefit from an event monitor to evaluate for any spontaneous atrial fibrillation She seems to be stable otherwise from a cardiac standpoint PDMP PDMP Reviewed: Not Reviewed Consult Attestations Medical Necessity Statement: Deferred to the primary Coding Level of Care Code 87068 Diagnoses Left-sided weakness R53.1 Other specified hypotension I95.89 Hypotension type: other hypotension type History of atrial fibrillation Z86.79
[2024-09-17 11:41] LABS: Total Bilirubin 0.2 mg/dL (0.15-1.2)
[2024-09-17] MEDS: gadobenate dimeglumine 20 mL vial IV (16:48)
--- NOTE | 2024-09-17 17:03 | PC.NURSE ---
mri completed.pt tolerated well.
[2024-09-17] MEDS: atorvastatin 40 mg Tablet PO (20:38)
[2024-09-17] MEDS: ketorolac 30 mg/mL INJ IVP (21:30)
[2024-09-18] MEDS: acetaminophen 500 mg Tablet 1000 MG PO (05:27)
[2024-09-18 05:28] VITALS: BP 131/74; PULSE 76; RESP 21; TEMP 36.3; O2SAT 97
[2024-09-18 05:31] LABS: Estmated Average Glucose 114; Hemoglobin A1C 5.6 % (4.0-6.0)
[2024-09-18 05:37] LABS: Chol HDL Ratio 3.44 mg/dL (0.0-4.40); Cholesterol 141 mg/dL (0-200); HDL Cholesterol 41 mg/dL (60-100); LDL Cholesterol Calculated 76 mg/dL (50-129); LDL HDL Ratio 1.85 RATIO (0.00-3.22); Triglycerides 122 mg/dL (0-150)
--- NOTE | 2024-09-18 07:52 | PC.NURSE ---
2033- Patient complaining of migraines, no orders for pain medication. Requested pain meds from Dr. ward. Received orders for one time toradol 30 mg and 1000mg of tylenol TID.
[2024-09-18 07:56] VITALS: BP 110/65; PULSE 66; RESP 16; TEMP 37; O2SAT 98
[2024-09-18] MEDS: aspirin 325 mg Tablet PO (08:44)
--- NOTE | 2024-09-18 08:59 | PM.PN ---
Subjective Medications: Medication Review Details: Current Medications Acetaminophen (Acetaminophen 500 Mg Tablet) 1,000 mg PO TID PRN PRN Reason: MILD PAIN OR INCREASE TEMP Last Admin: 09/18/24 05:27 Dose: 1,000 mg Aspirin (Aspirin 325 Mg Tablet) 325 mg PO DAILY [facility] Last Admin: 09/18/24 08:44 Dose: 325 mg Atorvastatin Calcium (Atorvastatin 40 Mg Tablet) 40 mg PO BEDTIME [facility] Last Admin: 09/17/24 20:38 Dose: 40 mg Vitals/I&O/Wt Last Vital Signs Temp 98.6 F 09/18/24 07:56 Pulse 66 09/18/24 07:56 Resp 16 09/18/24 07:56 BP 110/65 09/18/24 07:56 Pulse Ox 98 09/18/24 07:56 O2 Del Method Room Air 09/18/24 07:56 09/17/24 09/18/24 09/18/24 22:59 06:59 14:59 Intake Total 560 / 1040 300 / 1340 500 / 500 Balance 560 / 1040 300 / 1340 500 / 500 Weight last 48 hrs Weight 188 lb 9.6 oz Weight 184 lb 8 oz Weight 184 lb 8 oz Weight 191 lb Physical Exam Narrative: GENERAL: The patient is alert and oriented times three. Not in any acute distress. HEENT: No significant pallor, icterus or lymphadenopathy.Oral cavity: There are no mucous membrane lesions. NECK: Trachea appears to be central. No masses noted. No JVD or thyromegaly appreciated. RESPIRATORY: Chest is symmetrical. No intercostals muscle retraction or any accessory muscle activation. There is no chest wall tenderness. Breath sounds are heard bilaterally. No rales or rhonchi heard. No evidence of any consolidation. BREASTS: Deferred. HEART: The heart sounds are normal. No S3 or S4. No significant murmurs. No pericardial rub ABDOMEN: No vessel pulsations or distention. No tenderness. No organomegaly appreciated. Bowel sounds are normally heard. : Deferred. RECTAL: Deferred. LYMPHATIC: No lymphadenopathy noted in the neck. EXTREMITIES: No edema or cyanosis. No clubbing. MUSCULOSKELETAL: No acute joint deformities or swelling SKIN: There are no significant rashes or ecchymosis NEUROPSYCHIATRIC: The patient is alert and oriented x3. Appears to be in a good mood. No tremors or rigidity noted. Minimal facial drooping on the left side. Minimal motor weakness of the left upper and lower extremity Data 09/16/24 18:29 09/17/24 06:58 Other Labs: Laboratory Last Values WBC 9.65 10^3/uL (3.29-11.43) 09/16/24 18: RBC 3.79 10^6/uL (3.85-5.65) L 09/16/24 18: Hgb 10.90 g/dL (11.27-16.99) L 09/16/24 18: Hct 32.8 % (36-47) L 09/16/24 18: MCV 86.5 fl (85-98) 09/16/24 18: MCH 28.8 pg (27-33) 09/16/24 18: MCHC 33.2 g/dL (30-55) 09/16/24: RDW 14.2 % (12.1-15.1) 09/16/24: Plt Count 207 10^3/cmm (157-399) 09/16/24 18: MPV 11.5 fL (7.4-10.4) H 09/16/24 18: Neut % (Auto) 49.2 % 09/16/24 18: Lymph % (Auto) 42.3 % 09/16/24: [place] % (Auto) 5.9 % 09/16/24: Eos % (Auto) 1.6 % 09/16/24: Baso % (Auto) 0.8 % 09/16/24: Neut # (Auto) 4.75 10^3/uL (1.8-7.7) 09/16/24: Lymph # (Auto) 4.1 10^3/uL (0.8-4.8) 09/16/24: [place] # (Auto) 0.6 10^3/uL (0.2-0.9) 09/16/24 18: Eos # (Auto) 0.2 10^3/uL (0.0-0.8) 09/16/24 18: Baso # (Auto) 0.1 10^3/uL (0.0-0.1) 06/16/25 18:29 Nucleated RBC % (auto) 0 % 09/16/24 18:29 Nucleated RBCs # 0.0 /100WBC 09/16/24 18:29 PT 13.20 SECONDS (12.1-14.9) 09/16/24 18:29 INR 0.93 (0.8-1.2) 09/16/24 18:29 APTT 32.9 SECONDS (23.9-36.7) 09/16/24 18:29 Sodium 141 mmol/L (136-145) 09/17/24 06:58 Potassium 4.6 mmol/L (3.5-5.1) 09/17/24 06:58 Chloride 108 mmol/L (98-107) H 09/17/24 06:58 Carbon Dioxide 24 mmol/L (22-29) 09/17/24 06:58 Anion Gap 13.6 (5-19) 09/17/24 06:58 BUN 11 mg/dL (6-20) 09/17/24 06:58 Creatinine 0.6 mg/dL (0.5-0.9) 09/17/24 06:58 GFR Calculation 102.7 mL/min (90-130) 09/17/24 06:58 Glucose 87 mg/dL (65-115) 09/17/24 06:58 POC Glucose 88 mg/dL (70-110) 09/16/24 17:52 Estimat Average Glucose 114 09/18/24 04:59 Hemoglobin A1c 5.6 % (4.0-6.0) 09/18/24 04:59 Calculated Osmolality 291 mOsm/kg (285-295) 09/17/24 06:58 Lactic Acid 0.9 mmol/L (0.5-2.2) 09/16/24 18:29 Calcium 9.1 mg/dL (8.5-10.5) 09/17/24 06:58 Total Bilirubin 0.2 mg/dL (0.15-1.2) 09/17/24 06:58 AST 14 U/L (0-32) 09/17/24 06:58 ALT 11 U/L (0-33) 09/17/24 06:58 Alkaline Phosphatase 83 U/L (35-105) 09/17/24 06:58 C-Reactive Protein 3.0 mg/L (0.0-4.9) 09/16/24 18: Total Protein 6.2 g/dL (6.6-8.7) L 09/17/24 06:58 Albumin 3.6 g/dL (3.5-5.2) 09/17/24 06:58 Globulin 2.6 g/dL (1.3-4.6) 09/17/24 06:58 Triglycerides 122 mg/dL (0-150) 09/18/24 04:59 Cholesterol 141 mg/dL (0-200) 09/18/24 04:59 LDL Cholesterol, Calc 76 mg/dL (50-129) 09/18/24 04:59 HDL Cholesterol 41 mg/dL (60-100) L 09/18/24 04:59 LDL/HDL Ratio 1.85 RATIO (0.00-3.22) 09/18/24 04:59 Cholesterol/HDL Ratio 3.44 mg/dL (0.0-4.40) 09/18/24 04:59 Procalcitonin 0.02 ng/mL (0-0.5) 09/16/24 18: Urine Color Yellow (Yellow) 09/16/24 18: Urine Appearance Clear (CLEAR) 09/16/24 18: Urine pH 6.5 (5-7) 09/16/24 18: Ur Specific [place] 1.048 (1.005-1.030) H 09/16/24 18: Urine Protein Negative (Negative) 09/16/24 18: Urine Glucose (UA) Negative (Normal) 09/16/24 18: Urine Ketones Negative (Negative) 09/16/24 18: Urine Blood Negative (Negative) 09/16/24 18: Urine Nitrate Negative (Negative) 09/16/24 18: Urine Bilirubin Negative (Negative) 09/16/24 18: Urine Urobilinogen 0.2 mg/dL (Negative) 09/16/24 18: Ur Leukocyte Esterase Negative (Negative) 09/16/24 18: Urine RBC 0-2 /hpf (0-2) 09/16/24 18: Urine WBC 0-5 /hpf (0-5) 09/16/24 18: Ur Squamous Epith Cells 6-10 /hpf (0-5) 09/16/24 18:29 Amorphous Sediment Not Reportable 09/16/24 18:29 Urine Bacteria None seen /hpf (NONE) 09/16/24 18:29 Hyaline Casts 0-4 /lpf H 09/16/24 18:29 Urine Opiates Screen Negative ng/mL (Negative) 09/16/24 18:29 Ur Barbiturates Screen Negative ng/mL (Negative) 09/16/24 18:29 Ur Phencyclidine Scrn Negative ng/mL (Negative) 09/16/24 18:29 Ur Amphetamines Screen Negative ng/mL (Negative) 09/16/24 18:29 U Benzodiazepines Scrn Negative ng/mL (Negative) 09/16/24 18:29 Urine Cocaine Screen Negative ng/mL (Negative) 09/16/24 18:29 U Marijuana (THC) Screen Negative ng/mL (Negative) 09/16/24 18:29 Micro: Microbiology 09/16/24 19:17 Blood Culture - Preliminary Blood NEGATIVE TO DATE 09/16/24 19:19 Blood Culture - Preliminary Blood NEGATIVE TO DATE A&P Assessment and plan (1) Left-sided weakness: The etiology is unclear. She has a questionable history of atrial fibrillation but there is no documentation. MRI suggestive of venous thrombosis in the sinuses, this may need to be further evaluated (2) Hypotension: Patient had mild hypotension at the workplace. The etiology is not clear. Currently she is normotensive (3) History of atrial fibrillation: There is no documentation. EKG from 2022 was reviewed. She was found to be normal sinus rhythm at that time. Plan From a cardiac standpoint, a JONAS would be appropriate to evaluate for any cardiac source of embolization or rule out PFO Also may benefit from an event monitor to evaluate for any spontaneous atrial fibrillation She seems to be stable otherwise from a cardiac standpoint PDMP PDMP Reviewed: Not Reviewed Coding Level of Care Code Acute Code for Chg Fwd Diagnoses Left-sided weakness R53.1 Other specified hypotension I95.89 Hypotension type: other hypotension type History of atrial fibrillation Z86.79
--- NOTE | 2024-09-18 09:38 | PC.NURSE ---
apartment coordinator rounds at 0800- pt sitting up in bed eating breakfast. Coordination in her left hand seems to be much improved from yesterday. Still has some left facial droop. Patient states overall she is feeling better.
--- NOTE | 2024-09-18 10:33 | PC.CHAP ---
Pastoral Care Encounter/Spiritual Assessment Type of Contact [] Declined social work job titles visit [] Patient/Family/Request visit [] Outpatient visit [] Follow-up visit [] Physician referral [] Code/Alert [x] Routine visit [] Staff referral [] Actively dying [] Patient sleeping [] Family support [] [] Out of room [] Palliative care [] [] Receiving care in room [] Pre-surgical visit [] Trauma [] Long length of stay [] ICU visit [] Other: Relational/Emotional Strength [x] Patient feels connected with others/family/visitors/staff [] Distress [] Loneliness/isolation [] Abandonment Spirituality of Patient [x] Person of Marj [] Attends [employer] of their Marj [x] Believes in Prayer [] Reads Bible or Anglican materials [] There are Spiritual issues to be addressed Music Researcher Interventions [x] Prayer [x] Active listening [] Non-anxious presence [x] Spiritual/emotional support [] Crisis/trauma care [] Spiritual counseling [] Bereavement support [] Provided bereavement packet [] Provided Bible/devotional materials [] Provided toy/stuffed animal, coloring book to patient or family member [] Provided Communion [] Anointing/[place] [] Salvation [x] Completed spiritual assessment [] Other: Impact on Illness or Injury [] Angry [] Fearful [] Anxious [] Often cries [] Exhaustion [] Unable to work [] Unable to attend latter-day [] Unable to walk/stand [] Unable to read [] Unable to drive [] Unable to eat/drink [] Unable to sleep [] Unable to be with family [] Patient intubated [] Other: Summary Time spent with patient 5 min
[2024-09-18] MEDS: apixaban 5 mg Tablet PO (10:46)
--- NOTE | 2024-09-18 11:07 | PC.NURSE ---
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 It started this morning when she got up to walk and still has it while resting in bed. She never have it. Her pedal pulses are palpable +3, skin temp is warm, she has small fading bruise on her upper thigh.
--- NOTE | 2024-09-18 11:11 | PC.NURSE ---
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 It started this morning when she got up to walk and still has it while resting in bed. She never have it. Her pedal pulses are palpable +3, skin temp is warm, she has small fading bruise on her upper thigh. Talked to Dr. Christensen via telephone.
--- NOTE | 2024-09-18 11:40 | PM.PN ---
Vitals/I&O/Wt Last Vital Signs Temp 98.6 F 09/18/24 07:56 Pulse 66 09/18/24 07:56 Resp 16 09/18/24 07:56 BP 110/65 09/18/24 07:56 Pulse Ox 98 09/18/24 07:56 O2 Del Method Room Air 09/18/24 07:56 09/17/24 09/18/24 09/18/24 22:59 06:59 14:59 Intake Total 560 / 1040 300 / 1340 500 / 500 Balance 560 / 1040 300 / 1340 500 / 500 Weight last 48 hrs Weight 85.548 kg Weight 83.688 kg Weight 83.688 kg Weight 86.636 kg Data 09/16/24 18:29 09/17/24 06:58 Micro: Microbiology 09/16/24 19:17 Blood Culture - Preliminary Blood NEGATIVE TO DATE 09/16/24 19:19 Blood Culture - Preliminary Blood NEGATIVE TO DATE A&P PDMP PDMP Reviewed: Not Reviewed Coding Level of Care Code Acute Code for Chg Brandt
--- NOTE | 2024-09-18 11:59 | P.DS_ITS ---
<Statement entered by Naida Mike MD - 09/18/24 13:20> Cancelled Discharge Providers Date of Admission: 09/16/24 19:32 Date of Discharge: September 18, 2024 Attending Provider at Admission: Elda Veras MD Attending Provider at Discharge: Naida Mike MD Primary Care Provider: Juju Treviño MD Diagnoses at Discharge Discharge Diagnosis (1) Left-sided weakness: Status: Resolved (2) Hypotension: Status: Resolved Qualifiers: Hypotension type: other hypotension type Qualified Code(s): I95.89 - Other hypotension (3) History of atrial fibrillation: Status: Chronic Reason for Visit Reason for Visit: stroke like symptoms Hospital Course Hospital Course Briana herrera is a 59-year-old female with history of paroxysmal atrial fibrillation on apixaban, history of CVA, and migraines. She presented with migraine and left-sided hemiparesis. She had left-sided hemiparesis with her prior stroke in 2019. She was started on apixaban after the stroke. Her left- sided hemiparesis has resolved. She has mild sensory deficit in the right anterior thigh. CTA head and neck did not show any stenosis or occlusion. MRI head showed multiple filling defects involving the transverse and sagittal sinuses suggesting venous thrombosis. This was discussed with neurology who did not recommend getting MRV. She was continued on her apixaban 5 mg twice daily and started on aspirin 325 mg daily. Patient to follow-up with Dr. Nolasco (neurology as an outpatient). Discharge Data Studies Completed and Pending Completed Studies During Hospitalization Category Date Time Status CT angio headneck* 40820/51780 Stat Cat Scan 09/16/24 17:[address] head thrombolytic 04040 Stat Cat Scan 09/16/24 17:55 Completed MR head wo/w con 15160 Routine MRI 09/17/24 10:36 Completed CV. echo complete* [id number] Routine Ultrasound 09/17/24 06:15 Completed Pending at discharge Category Date Time Status Blood Culture Stat Lab 09/16/24 19:17 Results MRV [[place] [id number]] Routine MRI 09/18/24 09:26 Stop Req Radiology Impressions Head CT 09/16/24 17:55 IMPRESSION: No acute intracranial pathology. ASSESSMENT: ASPECTS ([place] Stroke Program Early CT Score) is 10. ADDENDUM: 09/16/246 ADDENDUM: THIS REPORT CONTAINS FINDINGS THAT MAY BE CRITICAL TO PATIENT CARE. The findings were verbally communicated via telephone conference with Dr. Lares at 6:14 PM CDT on 09/16/2024. The findings were acknowledged and understood. Head/Neck CTA 09/16/24 17:55 IMPRESSION: No large vessel stenosis or occlusion. IMPRESSION: 1. No stenosis or occlusion. 2. Several small (5 mm or less) hyperdense nodules in the bilateral parotid glands may reflect small intraparotid lymph nodes. Recommend clinical follow-up. REFERENCES: NASCET CRITERIA. The degree of stenosis in the cervical segment of the internal carotid artery is based on NASCET criteria. Normal is no stenosis. Mild is less than 50% stenosis. Moderate is 50-69% stenosis. Severe is 70% to 99% stenosis. Total occlusion is no detectable patent lumen. Head MRI 09/17/24 10:36 IMPRESSION: Multiple filling defects involving the transverse and sagittal sinuses suggesting venous thrombosis. Otherwise normal study. Laboratory Results WBC 9.65 10^3/uL (3.29-11.43) 09/16/24 18:29 RBC 3.79 10^6/uL (3.85-5.65) L 09/16/24 18:29 Hgb 10.90 g/dL (11.27-16.99) L 09/16/24 18:29 Hct 32.8 % (36-47) L 09/16/24 18:29 MCV 86.5 fl (85-98) 09/16/24 18:29 MCH 28.8 pg (27-33) 09/16/24 18:29 MCHC 33.2 g/dL (30-55) 09/16/24 18:29 RDW 14.2 % (12.1-15.1) 09/16/24 18:29 Plt Count 207 10^3/cmm (157-399) 09/16/24 18:29 MPV 11.5 fL (7.4-10.4) H 09/16/24 18:29 Neut % (Auto) 49.2 % 09/16/24 18:29 Lymph % (Auto) 42.3 % 09/16/24 18:29 [place] % (Auto) 5.9 % 09/16/24 18:29 Eos % (Auto) 1.6 % 09/16/24 18: Baso % (Auto) 0.8 % 09/16/24 18: Neut # (Auto) 4.75 10^3/uL (1.8-7.7) 09/16/24 18: Lymph # (Auto) 4.1 10^3/uL (0.8-4.8) 09/16/24 18: [place] # (Auto) 0.6 10^3/uL (0.2-0.9) 09/16/24 18: Eos # (Auto) 0.2 10^3/uL (0.0-0.8) 09/16/24 18: Baso # (Auto) 0.1 10^3/uL (0.0-0.1) 09/16/24 18: Nucleated RBC % (auto) 0 % 09/16/24: Nucleated RBCs # 0.0 /100WBC 09/16/24 18: PT 13.20 SECONDS (12.1-14.9) 09/16/24 18: INR 0.93 (0.8-1.2) 09/16/24 18: APTT 32.9 SECONDS (23.9-36.7) 09/16/24 18:29 Sodium 141 mmol/L (136-145) 09/17/24 06:58 Potassium 4.6 mmol/L (3.5-5.1) 09/17/24 06:58 Chloride 108 mmol/L (98-107) H 09/17/24 06:58 Carbon Dioxide 24 mmol/L (22-29) 09/17/24 06:58 Anion Gap 13.6 (5-19) 09/17/24 06:58 BUN 11 mg/dL (6-20) 09/17/24 06:58 Creatinine 0.6 mg/dL (0.5-0.9) 09/17/24 06:58 GFR Calculation 102.7 mL/min (90-130) 09/17/24 06:58 Glucose 87 mg/dL (65-115) 09/17/24 06:58 POC Glucose 88 mg/dL (70-110) 09/16/24 17:52 Estimat Average Glucose 114 09/18/24 04:59 Hemoglobin A1c 5.6 % (4.0-6.0) 09/18/24 04:59 Calculated Osmolality 291 mOsm/kg (285-295) 09/17/24 06:58 Lactic Acid 0.9 mmol/L (0.5-2.2) 09/16/24 18:29 Calcium 9.1 mg/dL (8.5-10.5) 09/17/24 06:58 Total Bilirubin 0.2 mg/dL (0.15-1.2) 09/17/24 06:58 AST 14 U/L (0-32) 09/17/24 06:58 ALT 11 U/L (0-33) 09/17/24 06:58 Alkaline Phosphatase 83 U/L (35-105) 09/17/24 06:58 C-Reactive Protein 3.0 mg/L (0.0-4.9) 09/16/24 18:29 Total Protein 6.2 g/dL (6.6-8.7) L 09/17/24 06:58 Albumin 3.6 g/dL (3.5-5.2) 09/17/24 06:58 Globulin 2.6 g/dL (1.3-4.6) 09/17/24 06:58 Triglycerides 122 mg/dL (0-150) 09/18/24 04:59 Cholesterol 141 mg/dL (0-200) 09/18/24 04:59 LDL Cholesterol, Calc 76 mg/dL (50-129) 09/18/24 04:59 HDL Cholesterol 41 mg/dL (60-100) L 09/18/24 04:59 LDL/HDL Ratio 1.85 RATIO (0.00-3.22) 09/18/24 04:59 Cholesterol/HDL Ratio 3.44 mg/dL (0.0-4.40) 09/18/24 04:59 Procalcitonin 0.02 ng/mL (0-0.5) 09/16/24 18:29 Urine Color Yellow (Yellow) 09/16/24 18: Urine Appearance Clear (CLEAR) 09/16/24 18: Urine pH 6.5 (5-7) 09/16/24 18: Ur Specific [place] 1.048 (1.005-1.030) H 09/16/24 18:29 Urine Protein Negative (Negative) 09/16/24 18:29 Urine Glucose (UA) Negative (Normal) 09/16/24 18: Urine Ketones Negative (Negative) 09/16/24 18: Urine Blood Negative (Negative) 09/16/24 18: Urine Nitrate Negative (Negative) 09/16/24 18: Urine Bilirubin Negative (Negative) 09/16/24 18: Urine Urobilinogen 0.2 mg/dL (Negative) 09/16/24 18:29 Ur Leukocyte Esterase Negative (Negative) 09/16/24 18:29 Urine RBC 0-2 /hpf (0-2) 09/16/24 18: Urine WBC 0-5 /hpf (0-5) 09/16/24 18: Ur Squamous Epith Cells 6-10 /hpf (0-5) 09/16/24 18: Amorphous Sediment Not Reportable 09/16/24 18: Urine Bacteria None seen /hpf (NONE) 09/16/24 18: Hyaline Casts 0-4 /lpf H 09/16/24 18:29 Urine Opiates Screen Negative ng/mL (Negative) 09/16/24 18:29 Ur Barbiturates Screen Negative ng/mL (Negative) 09/16/24 18:29 Ur Phencyclidine Scrn Negative ng/mL (Negative) 09/16/24 18:29 Ur Amphetamines Screen Negative ng/mL (Negative) 09/16/24 18:29 U Benzodiazepines Scrn Negative ng/mL (Negative) 09/16/24 18:29 Urine Cocaine Screen Negative ng/mL (Negative) 09/16/24 18:29 U Marijuana (THC) Screen Negative ng/mL (Negative) 09/16/24 18:29 Vitals Last Vital Signs Temp 98.6 F 09/18/24 07:56 Pulse 66 09/18/24 07:56 Resp 16 09/18/24 07:56 BP 110/65 09/18/24 07:56 Pulse Ox 98 09/18/24 07:56 O2 Del Method Room Air 09/18/24 07:56 Discharge Plan Discharge Patient Disposition: Home Condition: Stable Prescriptions: New aspirin 325 mg Tablet 325 mg PO DAILY Qty: 30 0RF atorvastatin 40 mg Tablet 40 mg PO BEDTIME Qty: 30 0RF Continued Eliquis 5 mg tablet 5 mg PO BID lisinopril 10 mg tablet 10 mg PO DAILY albuterol sulfate 90 mcg/actuation HFA aerosol inhaler 2 puff INHALATION Q4H PRN (Reason: Shortness Of Breath) Discharge Orders: Discharge Order (Routine); Ordered 09/18/24 Ordered By: Naida Mike Other Ambulatory Orders: DME: Walker (Order) Location: None Selected Ordered By: Roberto Rasmussen Physical Therapy Eval and Treat Outpatient (Order) Timeframe: 2 Days Facility: [facility] - Location: Physical Therapy [place] Ordered By: Roberto Rasmussen ECG holter monitor 14 Days (Routine) Timeframe: 1 Month Facility: [facility] - Location: Radiology Ordered By: Naida Mike Referrals: [facility] Outpatient Therapy [Outside] - 09/24/24 2:00 pm Vinita Nolasco MD [Physician, Neurology] - 10/02/24 9:30 am Juju Treviño MD [Primary Care Provider, [facility]] - 09/25/24 3:00 pm Chon Christensen MD [Physician, Cardiology] - 1 month Discharge Diet: Cardiac Discharge Activity: Use walker/crutches as instructed Patient Instructions: Anticoagulation Therapy, Atrial Fibrillation, Aspirin (By mouth), Atorvastatin (By mouth), Chronic Hypertension (DC), Self Care Measures After a Stroke (DC), Opioid Safety, Stroke Stoplight Discharge Attestations Time Spent in Discharge Care*: other (cancelled) Quality Metrics Clinical Quality Measures [ No reported AMI, CVA or VTE this stay] Coding Level of Care Code Acute Code for Chg Fwd Diagnoses Left-sided weakness R53.1 Other specified hypotension I95.89 Hypotension type: other hypotension type History of atrial fibrillation Z86.79
--- NOTE | 2024-09-18 12:01 | P.DS_ITS ---
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 She presented with m igraine and left-sided hemiparesis. She had left-sided hemiparesis with her prior stroke in 2019. She was started on apixaban after the stroke. Her left- sided hemiparesis has resolved. She has mild sensory deficit in the right anterior thigh. CTA head and neck did not show any stenosis or occlusion. MRI head showed multiple filling defects involving the transverse and sagittal sinuses suggesting venous thrombosis. This was discussed with neurology who did not recommend getting MRV. She was continued on her apixaban 5 mg twice daily and started on aspirin 325 mg daily. Patient to follow-up with Dr. Nolasco (neurology as an outpatient). Physical Exam Const: COMMON NORMALS: no acute distress and patient oriented x3 HENMT: COMMON NORMALS: normocephalic, atraumatic and moist oral mucous membranes HEAD & SCALP: normocephalic and atraumatic Eye: COMMON NORMALS: Equal, round and reactive pupils present, EOMs intact bilaterally and conjunctivae normal CONJUNCTIVA: Yes conjunctivae normal PUPIL: Yes Equal, round and reactive pupils present Neck/C-Spine: COMMON NORMALS: supple and no JVD Chest: COMMONS NORMALS: normal inspection of the chest Resp: COMMON NORMALS: normal respiratory effort and clear to auscultation bilaterally AUSCULTATION: clear to auscultation bilaterally Cardio: COMMON NORMALS: no JVD, regular rate, regular rhythm, S1 normal heart sound present, S2 normal heart sound present and No murmurs present (Cardio) RATE: regular rate RHYTHM: regular rhythm HEART SOUNDS: S1 normal heart sound present and S2 normal heart sound present GI: COMMON NORMALS: Normal to inspection, nondistended, normoactive bowel sounds present : COMMON NORMALS: Yes no CVA tenderness BLADDER/KIDNEY EXAM: Yes no CVA tenderness Back/Pelvis: COMMON NORMALS: no CVA tenderness Extremity: COMMON NORMALS: normal to inspection, full ROM and no pedal edema Neuro: COMMON NORMALS: patient oriented x3, CN's II-XII intact bilaterally, no focal motor deficits and deep tendon reflexes 2+ bilaterally SENSORY EXAM: Yes other (Mild decrease in sensation right anterior thigh) Psych: COMMON NORMALS: cooperative, normal affect and speech normal SPEECH: Yes normal speech Skin: COMMON NORMALS: no rashes or lesions noted GENERAL SKIN EXAM: no rashes or lesions noted Discharge Data Studies Completed and Pending Completed Studies During Hospitalization Category Date Time Status CT angio headneck* [id number] Stat Cat Scan 09/16/24 17:[address] head thrombolytic 24337 Stat Cat Scan 09/16/24 17:55 Completed MR head wo/w con 32741 Routine MRI 09/17/24 10:36 Completed CV. echo complete* [id number] Routine Ultrasound 09/17/24 06:15 Completed Pending at discharge Category Date Time Status Blood Culture Stat Lab 09/16/24 19:17 Results MRV [[place] [address]] Routine MRI 09/18/24 09:26 Stop Req Radiology Impressions Head CT 09/16/24 17:55 IMPRESSION: No acute intracranial pathology. ASSESSMENT: ASPECTS ([place] Stroke Program Early CT Score) is 10. ADDENDUM: 09/16/241815 ADDENDUM: THIS REPORT CONTAINS FINDINGS THAT MAY BE CRITICAL TO PATIENT CARE. The findings were verbally communicated via telephone conference with Dr. Lares at 6:14 PM CDT on 09/16/2024. The findings were acknowledged and understood. Head/Neck CTA 09/16/24 17:55 IMPRESSION: No large vessel stenosis or occlusion. IMPRESSION: 1. No stenosis or occlusion. 2. Several small (5 mm or less) hyperdense nodules in the bilateral parotid glands may reflect small intraparotid lymph nodes. Recommend clinical follow-up. REFERENCES: NASCET CRITERIA. The degree of stenosis in the cervical segment of the internal carotid artery is based on NASCET criteria. Normal is no stenosis. Mild is less than 50% stenosis. Moderate is 50-69% stenosis. Severe is 70% to 99% stenosis. Total occlusion is no detectable patent lumen. Head MRI 09/17/24 10:36 IMPRESSION: Multiple filling defects involving the transverse and sagittal sinuses suggesting venous thrombosis. Otherwise normal study. Laboratory Results WBC 9.65 10^3/uL (3.29-11.43) 09/16/24 18: RBC 3.79 10^6/uL (3.85-5.65) L 09/16/24 18: Hgb 10.90 g/dL (11.27-16.99) L 09/16/24 18: Hct 32.8 % (36-47) L 09/16/24 18: MCV 86.5 fl (85-98) 09/16/24 18: MCH 28.8 pg (27-33) 09/16/24 18: MCHC 33.2 g/dL (30-55) 09/16/24 18: RDW 14.2 % (12.1-15.1) 09/16/24 18: Plt Count 207 10^3/cmm (157-399) 09/16/24 18: MPV 11.5 fL (7.4-10.4) H 09/16/24 18: Neut % (Auto) 49.2 % 09/16/24 18: Lymph % (Auto) 42.3 % 09/16/24 18: [place] % (Auto) 5.9 % 09/16/24 18: Eos % (Auto) 1.6 % 09/16/24 18: Baso % (Auto) 0.8 % 09/16/24 18: Neut # (Auto) 4.75 10^3/uL (1.8-7.7) 09/16/24 18: Lymph # (Auto) 4.1 10^3/uL (0.8-4.8) 09/16/24 18: [place] # (Auto) 0.6 10^3/uL (0.2-0.9) 09/16/24 18: Eos # (Auto) 0.2 10^3/uL (0.0-0.8) 09/16/24 18:29 Baso # (Auto) 0.1 10^3/uL (0.0-0.1) 09/16/24 18:29 Nucleated RBC % (auto) 0 % 09/16/24 18: Nucleated RBCs # 0.0 /100WBC 09/16/24 18:29 PT 13.20 SECONDS (12.1-14.9) 09/16/24 18: INR 0.93 (0.8-1.2) 09/16/24 18:29 APTT 32.9 SECONDS (23.9-36.7) 09/16/24 18:29 Sodium 141 mmol/L (136-145) 09/17/24 06:58 Potassium 4.6 mmol/L (3.5-5.1) 09/17/24 06:58 Chloride 108 mmol/L (98-107) H 09/17/24 06:58 Carbon Dioxide 24 mmol/L (22-29) 09/17/24 06:58 Anion Gap 13.6 (5-19) 09/17/24 06:58 BUN 11 mg/dL (6-20) 09/17/24 06:58 Creatinine 0.6 mg/dL (0.5-0.9) 09/17/24 06:58 GFR Calculation 102.7 mL/min (90-130) 09/17/24 06:58 Glucose 87 mg/dL (65-115) 09/17/24 06:58 POC Glucose 88 mg/dL (70-110) 09/16/24 17:52 Estimat Average Glucose 114 09/18/24 04:59 Hemoglobin A1c 5.6 % (4.0-6.0) 09/18/24 04:59 Calculated Osmolality 291 mOsm/kg (285-295) 09/17/24 06:58 Lactic Acid 0.9 mmol/L (0.5-2.2) 09/16/24 18:29 Calcium 9.1 mg/dL (8.5-10.5) 09/17/24 06:58 Total Bilirubin 0.2 mg/dL (0.15-1.2) 09/17/24 06:58 AST 14 U/L (0-32) 09/17/24 06:58 ALT 11 U/L (0-33) 09/17/24 06:58 Alkaline Phosphatase 83 U/L (35-105) 09/17/24 06:58 C-Reactive Protein 3.0 mg/L (0.0-4.9) 09/16/24 18:29 Total Protein 6.2 g/dL (6.6-8.7) L 09/17/24 06:58 Albumin 3.6 g/dL (3.5-5.2) 09/17/24 06:58 Globulin 2.6 g/dL (1.3-4.6) 09/17/24 06:58 Triglycerides 122 mg/dL (0-150) 09/18/24 04:59 Cholesterol 141 mg/dL (0-200) 09/18/24 04:59 LDL Cholesterol, Calc 76 mg/dL (50-129) 09/18/24 04:59 HDL Cholesterol 41 mg/dL (60-100) L 09/18/24 04:59 LDL/HDL Ratio 1.85 RATIO (0.00-3.22) 09/18/24 04:59 Cholesterol/HDL Ratio 3.44 mg/dL (0.0-4.40) 09/18/24 04:59 Procalcitonin 0.02 ng/mL (0-0.5) 09/16/24 18: Urine Color Yellow (Yellow) 09/16/24 18: Urine Appearance Clear (CLEAR) 09/16/24 18: Urine pH 6.5 (5-7) 09/16/24 18: Ur Specific [place] 1.048 (1.005-1.030) H 09/16/24 18: Urine Protein Negative (Negative) 09/16/24 18: Urine Glucose (UA) Negative (Normal) 09/16/24 18: Urine Ketones Negative (Negative) 09/16/24 18: Urine Blood Negative (Negative) 09/16/24 18: Urine Nitrate Negative (Negative) 09/16/24 18: Urine Bilirubin Negative (Negative) 09/16/24 18: Urine Urobilinogen 0.2 mg/dL (Negative) 09/16/24 18:29 Ur Leukocyte Esterase Negative (Negative) 09/16/24 18: Urine RBC 0-2 /hpf (0-2) 09/16/24 18:29 Urine WBC 0-5 /hpf (0-5) 09/16/24 18:29 Ur Squamous Epith Cells 6-10 /hpf (0-5) 09/16/24 18:29 Amorphous Sediment Not Reportable 09/16/24 18:29 Urine Bacteria None seen /hpf (NONE) 09/16/24 18:29 Hyaline Casts 0-4 /lpf H 09/16/24 18:29 Urine Opiates Screen Negative ng/mL (Negative) 09/16/24 18:29 Ur Barbiturates Screen Negative ng/mL (Negative) 09/16/24 18:29 Ur Phencyclidine Scrn Negative ng/mL (Negative) 09/16/24 18:29 Ur Amphetamines Screen Negative ng/mL (Negative) 09/16/24 18:29 U Benzodiazepines Scrn Negative ng/mL (Negative) 09/16/24 18:29 Urine Cocaine Screen Negative ng/mL (Negative) 09/16/24 18:29 U Marijuana (THC) Screen Negative ng/mL (Negative) 09/16/24 18:29 Vitals Last Vital Signs Temp 98.6 F 09/18/24 07:56 Pulse 66 09/18/24 07:56 Resp 16 09/18/24 07:56 BP 110/65 09/18/24 07:56 Pulse Ox 98 09/18/24 07:56 O2 Del Method Room Air 09/18/24 07:56 Discharge Plan Discharge Patient Disposition: Home Condition: Stable Prescriptions: New aspirin 325 mg Tablet 325 mg PO DAILY Qty: 30 0RF atorvastatin 40 mg Tablet 40 mg PO BEDTIME Qty: 30 0RF Continued Eliquis 5 mg tablet 5 mg PO BID lisinopril 10 mg tablet 10 mg PO DAILY albuterol sulfate 90 mcg/actuation HFA aerosol inhaler 2 puff INHALATION Q4H PRN (Reason: Shortness Of Breath) Discharge Orders: Discharge Order (Routine); Ordered 09/18/24 Ordered By: Nadia Mike Other Ambulatory Orders: DME: Walker (Order) Location: None Selected Ordered By: Roberto Rasmussen Physical Therapy Eval and Treat Outpatient (Order) Timeframe: 2 Days Facility: [facility] - Location: Physical Therapy [place] Ordered By: Roberto Rasmussen Referrals: [facility] Outpatient Therapy [Outside] - 09/24/24 2:00 pm Vinita Nolasco MD [Physician, Neurology] - 10/02/24 9:30 am Juju Treviño MD [Primary Care Provider, Family Practice] - 09/25/24 3:00 pm Discharge Diet: Cardiac Discharge Activity: Use walker/crutches as instructed Patient Instructions: Anticoagulation Therapy, Atrial Fibrillation, Aspirin (By mouth), Atorvastatin (By mouth), Chronic Hypertension (DC), Self Care Measures After a Stroke (DC), Opioid Safety, Stroke Stoplight Discharge Attestations Time Spent in Discharge Care*: greater than 30 min Quality Metrics Clinical Quality Measures [ No reported AMI, CVA or VTE this stay] Coding Level of Care Code Acute Code for Chg Fwd Diagnoses Cerebral venous sinus thrombosis G08 Left-sided weakness R53.1 Other specified hypotension I95.89 Hypotension type: other hypotension type History of atrial fibrillation Z86.79
[2024-09-18 12:36] VITALS: BP 147/80; PULSE 62; RESP 15; TEMP 37.1; O2SAT 96
--- NOTE | 2024-09-18 16:10 | PC.NURSE ---
I was asked by Karen Rausch RN to be present when she reviewed patient's d/c with her as patient has had multiple questions throughout the day, Dr. Mike has seen her twice today to answer questions, and patient is hesitant to be discharged. Upon entering room, Jer informed patient that we were going to review d/c information with her and she states I have a lot of questions about that, are you ready for me to fire them at you? 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 Upon review of d/c information, it was noted patient has an appointment with Dr. Nolasco within two weeks. I discussed this with her and she states that her family prefers she find a neurologist in [place], so I offered to send a referral for her and let her know that if she doesn't hear from them by 09/23, please call their number or Dr. Treviño to send more referral information. She verbalizes understanding. She is going to keep Dr. Nolasco's appointment as well in case she doesn't get an earlier appointment with [facility]. Jer is going to speak with Dr. Mike and discuss when patient can return to work and/or drive after d/c and will f/u with patient at that time.
[2024-09-18 16:31] VITALS: BP 130/74; PULSE 71; RESP 18; TEMP 37.1; O2SAT 95
[2024-09-18 16:47] VITALS: BP 130/74; PULSE 71; RESP 18; O2SAT 95
--- NOTE | 2024-09-18 16:53 | PC.NURSE ---
work release and request for a medicine for her headaches Talked to Dr Mike that pt want's to know when she can go back to work and if she is safe to drive. Dr Mike stated she can go back to work after Monday and no restrictions to driving. Educated and informed pt that she will have an appointment with her pcp on Monday. Work release provided to pt and Dr Mike added a Topamax for her her migraine.
--- NOTE | 2024-09-18 16:57 | PC.NURSE ---
Applied Holeter monitor prior to discharge
--- NOTE | 2024-09-18 18:25 | PC.NURSE ---
Discharge Note Patient discharged to home via private vehicle accompanied by Discharge instructions reviewed with patient and/or customer service representative teller. Mobile pharmacy medications and/or prescriptions provided. Belongings/home medications returned. Educated pt on new meds and possible side effects. discharge papers provided.
== END 2024-09-18 16:45 | disposition home or self-care (01) | DRG 65 ==
LOC: ER 19:22 → CSU 19:49
PROVIDERS: Emergency Medicine; Internal Medicine; Admitting Provider Internal Medicine; Emergency Provider Emergency Medicine; PCP Family Medicine; Visit Provider Student in an Organized Health Care Education/Training Program
DX: I63.411 Cerebral infarction due to embolism of right middle cerebral artery (principal); G81.94 Hemiplegia, unspecified affecting left nondominant side; G43.909 Migraine, unspecified, not intractable, without status migrainosus; R29.810 Facial weakness; R20.2 Paresthesia of skin; I48.0 Paroxysmal atrial fibrillation; Z79.01 Long term (current) use of anticoagulants; I95.9 Hypotension, unspecified; Z79.82 Long term (current) use of aspirin; Z86.73 Personal history of transient ischemic attack (TIA), and cerebral infarction without residual deficits; I10 Essential (primary) hypertension; E86.0 Dehydration
CPT/HCPCS: 36415; 36416; 70450; 70496; 70498; 70553; 80053; 80061; 80306; 81001; 82962; 83036; 83605; 84145; 85025; 85610; 85730; 86140; 87040; 92523; 92610; 93005; 93306; 97110; 97116; 97161; 97165; 99285; A9270; J1885; J7030; J9999

== ENCOUNTER 2024-09-24 13:57 | Outpatient (RCR) | payer BC, SELFPAY | END 2024-09-30 23:55 | disposition home or self-care (01) | LOC: SPT 13:57 | PROVIDERS: PCP Family Medicine; Visit Provider Internal Medicine | DX: R53.1 Weakness (principal) | CPT/HCPCS: 97162 ==

== ENCOUNTER 2024-10-01 06:30 | Outpatient (RCR) | payer BC, SELFPAY | END 2024-10-31 23:59 | disposition home or self-care (01) | LOC: SPT 06:30 | PROVIDERS: PCP Family Medicine; Visit Provider Internal Medicine | DX: R53.1 Weakness (principal) | CPT/HCPCS: 97110; 97530 ==

== ENCOUNTER → 2024-10-02 16:20 | Outpatient (BNVA) | payer BC, SELFPAY | PROVIDERS: PCP Family Medicine; Visit Provider Specialist | DX: I63.9 Cerebral infarction, unspecified (principal); G08 Intracranial and intraspinal phlebitis and thrombophlebitis; I69.311 Memory deficit following cerebral infarction; R53.1 Weakness; G43.909 Migraine, unspecified, not intractable, without status migrainosus | CPT/HCPCS: 36415; 81241; 82542; 85651; 86038 ==

== ENCOUNTER 2024-10-11 06:47 | Outpatient (CLI) | payer BC, SELFPAY ==
--- NOTE | 2024-10-11 07:15 | MR_ITS ---
WS: [id number] MRI CERVICAL SPINE NONCONTRAST TECHNIQUE: Sagittal T1, T2 and STIR imaging. Axial T2, gradient, and fiesta imaging. 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 COMPARISON: MRI 2013 FINDINGS: Straightening of the normal cervical lordosis. Cord signal is normal. C2-C3: Normal. C3-C4: Normal. C4-C5: Minimal disc bulging with a tiny shallow central protrusion. Mild facet arthropathy. Foramen are patent. C5-C6: Mild disc osteophyte complex with endplate ridging. Mild central canal stenosis. Mild facet arthropathy. Foramen are patent. C6-C7: Central disc osteophyte protrusion with slight indentation on the ventral cord. Mild central canal stenosis. Mild facet arthropathy with uncovertebral joint hypertrophy. Foramen are patent. C7-T1: No significant disc bulging. Mild endplate ridging. Mild facet arthropathy. No significant foraminal narrowing. Visualized brain stem structures: Normal. Prevertebral soft tissues: Normal. MR/MR cervical spin wo con* [id number] IMPRESSION: 1. Straightening of the normal cervical lordosis. Cord signal is normal. 2. Shallow central disc osteophyte protrusion C6-7 with slight indentation of the cervical cord. This appears slightly more prominent compared to previous. M ild central canal stenosis. 3. Mild central canal stenosis C5-C6. 4. Minimal disc bulging with a tiny shallow central protrusion C4-5 5. Mild facet arthropathy worse at C5-C6 and C6-C7.
--- NOTE | 2024-10-11 08:00 | MR_ITS ---
WS: [id number] MR VENOGRAPHY HEAD INDICATION: Multiple strokes. Left-sided weakness. TECHNIQUE: 2D and 3D urbi-nq-aonwie MR venogram with multiplanar reformatted images. Maximum intensity projection images. COMPARISON: MRI head 09/17/2024 FINDINGS: Prior imaging was reviewed. Normal sagittal sinus. Transverse sinuses are patent. Normal straight sinus and internal cerebral veins. Sigmoid sinuses are patent. No evidence of dural sinus thrombosis. Previously described filling defects most compatible with arachnoid granulations and demonstrated to better advantage on today's study. MR/[place] [id number] IMPRESSION: Normal MR venogram. No evidence of dural sinus thrombosis..
== END 2024-10-11 06:48 | disposition home or self-care (01) ==
LOC: RAD 06:47
PROVIDERS: PCP Family Medicine; Visit Provider Specialist
DX: G08 Intracranial and intraspinal phlebitis and thrombophlebitis (principal); M50.223 Other cervical disc displacement at C6-C7 level; M48.02 Spinal stenosis, cervical region; M47.812 Spondylosis without myelopathy or radiculopathy, cervical region; I69.354 Hemiplegia and hemiparesis following cerebral infarction affecting left non-dominant side
CPT/HCPCS: 70544; 72141

== ENCOUNTER 2024-10-31 13:17 | Outpatient (CLI) | payer BC, SELFPAY ==
[2024-10-31 13:28] VITALS: BMI 28.8
--- NOTE | 2024-10-31 13:32 | USCV_ITS ---
Darling Reyes Age: 59 Gender: F : 1965 Exam Date: 10/31/2024 14:00 Ordering Phys: Chon Christensen MD ([email or web address]) Technologist: DEMETRIUS Exam Location: [facility] [place] Indication: abn ekg Rhythm: Sinus Patient History: abn ekg Cardiac Medications: Medications in past 24 hours: Contrast: Stress Results Protocol: Carlos Enrique Total dose(mL): Exercise Duration (min:sec): 4:52 METS: 7 Resting HR: 79 Resting BP: 111 / 72 Peak HR: 147 Peak BP: 175 / 94 Max Predicted HR: 162 91 % Max Predicted HR Target HR: 138 Double Product: 44405 Stress Summary: The patient's target heart rate was achieved BP Response: Normal Reason for Termination: Test terminated after reaching target heart rate (85% max predicted) Cardiac Symptoms: None ECG Analysis Resting ECG: Normal sinus rhythm with no ST-T wave abnormality Stress ECG: No ST-T wave abnormality Arrhythmia: No arrhythmias MEASUREMENTS (Male/Female) Normal Values FINDINGS 1. Resting echocardiogram images showed normal LV size and systolic function, EF 60% 2. No wall motion abnormalities at rest or stress. CONCLUSIONS 1. Normal stress echocardiogram with no inducible ischemia. Omar Hall MD, FACC (Electronically Signed) Final Date: 31 October 2024 17:06 S
--- NOTE | 2024-10-31 13:33 | ECG_ITS ---
[facility]: 2024-10-31 Pat Name: Darling Reyes Department: Room: Gender: Female Product Engineer: : 1965 Requested By: Chon Christensen Order Number: [id number] Short MD: Omar Hall M.D. Interpretive Statements EXERCISE DATA: The patient exercised for 4 minutes and 52 seconds on the Carlos Enrique protocol which is fair exercise capacity for the patient's age. Resting heart rate was 82 with a resting blood pressure of 114/71. Maximal heart rate achieved was 147 which was 90% of maximum predicted heart rate. Maximum METS achieved 7. The patient had no cardiac symptoms during the stress test including chest pain. ELECTROCARDIOGRAM: BASELINE: Showed sinus rhythm, normal axis, no significant ST-T changes at the baseline noted. [] EXERCISE: At the peak exercise level, [] No significant ST-T changes suggestive of ischemia noted. [] RECOVERY: During the recovery period, heart rate dropped appropriately. No significant ST-T changes in the recovery suggestive of ischemia noted. [] CONCLUSION: 1. Exercise capacity fair. 2. Heart rate response was [appropriate]. 3. Blood pressure response was [appropriate]. 4. Symptoms not suggestive of ischemia. 5. Stress test is not suggestive of ischemia Electronically Signed On 10-31-2024 17:04:36 CDT by Omar Hall M.D. [email or web address]
[2024-10-31 14:18] VITALS: BP 113/52; PULSE 92
== END 2024-10-31 13:18 | disposition home or self-care (01) ==
LOC: CDL 13:19
PROVIDERS: PCP Family Medicine; Visit Provider Internal Medicine Cardiovascular Disease
DX: R94.31 Abnormal electrocardiogram [ECG] [EKG] (principal)
CPT/HCPCS: 93017; 93350

== ENCOUNTER → 2025-01-06 17:41 | Outpatient (BNVA) | payer BC, SELFPAY | PROVIDERS: PCP Family Medicine; Visit Provider Family Medicine | DX: R39.9 Unspecified symptoms and signs involving the genitourinary system (principal) | CPT/HCPCS: 81000; 87086 ==